=== PATIENT | male | born 1950 | race Caucasian/White ===

== ENCOUNTER → 2016-08-19 | Outpatient (CLI) | payer MEDICARE, OTHER ==
[2016-01-02 09:46] VITALS: BP 138/63
[~2016-08-19] MED LIST: ACET325T21 PO; AMIT10TA PO; AMIT25TA PO; AMLO10TA2 PO; AMOX1TAB11 PO; ASCO500T2 PO; BENA20TA2 PO; BUPIVACAINE MPF 0.75% 30 ML VIAL. ONE; CARB1TAB2 PO; CARB1TAB44 PO; CARB1TAB5 PO; CELE200C PO; CETI10TA22 PO; CLONIDINE PF 5,000 MCG/10 ML VIAL for PC Charging ONLY. EP ONE; DIAZ5TAB PO; DOXA4TAB3 PO; DOXY100T PO; DULO60CA6 PO; FERR325T58 PO; FINA5TAB4 PO; FURO-68 PO; FURO-69 PO; FURO40TA4 PO; GABA400C PO; GLYB5TAB3 PO; HYDR-2666 PO; HYDR-2672 PO; IBUP-1007 PO; LACT1CAP25 PO; LISI40TA PO; LOSA100T6 PO; LUBI24CA5 PO; MELA3TAB PO; METF10002 PO; METF500T4 PO; MORPHINE SULFATE IV ONE; MULT-460 PO; NYST30PO9 TP; OMEG1CAP6 PO; OMEP20CA9 PO; OXYC20TA34 PO; OXYC40TA21 PO; OXYC5CAP3 PO; PAIN PUMP; PANT40TA5 PO; POLY15DR28 OU; POLY17PO5 PO; POTA10TA10 PO; POTA20TA12 PO; SIMV40TA3 PO; TAMS0.4C2 PO; TRAZ100T12 PO; TRIA5PAS4 DT; VENL75TA PO; nystop
--- NOTE | 2016-08-19 21:19 | PAIN ---
DATE OF SERVICE: 08/19/2016 PROGRESS NOTE DIAGNOSES: 1. Post-lumbar laminectomy syndrome. 2. Multiple joint pain. 3. Chronic pain syndrome. 4. Left shoulder joint pain. HISTORY OF PRESENT ILLNESS: The patient is a 66-year-old male who returns for followup status post intrathecal pump therapy with morphine, clonidine and bupivacaine. The patient was in most recently on 06/23/2016. We had just increased his pump to 12.5 mg a day of the morphine driving medication. The patient reports he has done better, but still significant pain in his left foot from neuropathic pain and previous trauma and healing. The patient reports his pain as a 7 on a scale of 10. Otherwise, doing fairly well with his low back and shoulder pain. He is scheduled to have shoulder surgery next week on the left shoulder, reports that he is looking forward to getting it, feeling better as well with his back pain, doing much better with the intrathecal pump with no side effects. The patient reports he is still having difficulty with mobility as he uses wheelchair most times. It does motorized chair with good help with his mobility. In that perspective, he is still residing at a local rehab and custodial, which has been helpful for his overall daily activities and treatment as well. The patient reports no new motor or sensory deficits, no new bowel or bladder incontinence or other complaints. Again, no side effects with the medications and reports about 70% improvement with the medication for his low back pain overall. PHYSICAL EXAMINATION: VITAL SIGNS: Today, the patient's blood pressure is 100/63, pulse 85, respirations 18, temperature 98.4 degrees Fahrenheit. Height is 5 feet 7 inches, weight was not performed secondary patient's wish, not to get out of his wheelchair. GENERAL: The patient is awake, alert, oriented, appropriate, very pleasant demeanor. The patient accompanied his spouse. HEENT: Shows normocephalic and atraumatic. Extraocular movements are intact and symmetrical. Oral cavity shows mucous membranes moist and pink. Dentition is intact. NECK: Shows anterior throat supple without palpable lymphadenopathy noted. Swallow reflex is symmetrical. Neck shows full rotation and motion of cervical spine, both laterally as well as extension and flexion without difficulty. CHEST: Shows normal on inspection. Breath sounds are clear to auscultation bilaterally. HEART: Shows S1 and S2 clear. ABDOMEN: Obese, soft, nontender, nondistended. No palpable organomegaly is noted. No rebound or guarding demonstrated, easily palpable intrathecal pump is noted on the right lower quadrant with well-healed surgical scar on inspection over the area of the pump, which is mobile and nontender. BACK: Shows spine grossly in midline. Slight exaggeration of thoracic kyphosis and mild flattening of lumbar lordotic curvature. The patient shows well-healed surgical scar. On inspection, the lumbar distribution of the lumbar paraspinous muscles are symmetrical in appearance. With palpation, is moderately tender with palpation throughout the upper, middle, lower distribution of paraspinous muscles bilaterally in the lumbar distribution without radiation. No tenderness over the sacrum or sacroiliac regions; however. EXTREMITIES: The patient's lower extremities show deep tendon reflexes 1+ in the patellar tendons. The patient has a large soft boot on his left ankle and foot, but does have good dorsiflexion, extension, which is about 3 on a scale of 5, right side is a 4 on a scale 5 and intact bilaterally. Peripheral pulses are palpable at 1+ in the posterior tibial and dorsalis pedis pulses bilaterally as well. PLAN: Options were discussed with the patient. The patient's old chart was reviewed as his current medication regimen and updated. Current review of systems updated today as well. We will refill the patient's intrathecal pump under sterile prep and drape and reprogram as well with the current 12.5 mg of morphine driving medication per day maintained. The patient will return to clinic for refill of the medication prior to 01/21/2017 and prior to that if any other complaints or other needs arise. Once again, the patient was counseled as to activity levels as well as medication regimen and side effects to be aware of. PROCEDURE: Intrathecal pump refill and reprogramming. Under sterile prep and drape, the patient's right lower quadrant was prepped with sterile alcohol prep and sterile draping was applied in the usual fashion. Using a 22-gauge noncutting Design A kit needle, the pump was accessed without difficulty, 2 mL of medication was withdrawn and discarded from the pump and a solution of 40 mL of bupivacaine, clonidine and morphine as documented was then replaced in the pump with intermittent bolus injection without difficulty. The patient tolerated procedure well, had no complications. Needle was withdrawn. Sterile bandage was applied. The patient again will return to clinic prior to next refill date as documented. DIAGNOSES: Chronic pain syndrome with multiple joint pain and post-lumbar laminectomy syndrome. PROCEDURE: Intrathecal pump refill and reprogramming. MEDICATIONS REPLACED: A solution of bupivacaine, clonidine and morphine as documented. The patient's condition at discharge is stable. The patient tolerated the procedure well, had no complications. ANABEL LOMELI MD DR: ANNA/daron JOB#: [id number] / [id number]
== END | disposition home or self-care (01) ==
LOC: PNCL 11:04
PROVIDERS: ATTEND Anesthesiology
DX: M96.1 Postlaminectomy syndrome, not elsewhere classified (principal)
CPT/HCPCS: 95991; J0735; J2270; J3490

== ENCOUNTER 2016-09-29 07:38 | Inpatient (IN) | payer MEDICARE, OTHER ==
[2016-09-29] VITALS (10 sets, daily range): BP systolic 109–144; BP diastolic 40–84
[~2016-09-29] VITALS: Ht 170.2 cm; Wt 122.5 kg
[~2016-09-29 07:38] MED LIST changes: -BUPIVACAINE MPF 0.75% 30 ML VIAL. ONE; +CELECOXIB 200 MG CAPSULE PO PRN; -CLONIDINE PF 5,000 MCG/10 ML VIAL for PC Charging ONLY. EP ONE; +FENTANYL PF 100 MCG/2 ML VIAL. IV PRN; +HYDROCODONE/APAP 7.5/325MG TABLET. PO PRN; +IV RINGERS,LACTATED 1000ML 1,000 ML IV SCH; +LIDOCAINE 1% 1 ML SYRINGE. ID PRN; -MORPHINE SULFATE IV ONE; +ONDANSETRON PF 4 MG/2 ML VIAL. IV PRN; +PROCHLORPERAZINE 10 MG/2 ML VIAL. IV PRN; +TRANEXAMIC ACID 1,000 MG in IV NS 50ML -- 1ST BAG INJ ONE
[2016-09-29] MEDS ORDERED: TRANEXAMIC ACID 1,000 MG in IV NS 50ML -- 2ND BAG INJ ONE (08:00)
[2016-09-29] MEDS ORDERED: FAMOTIDINE 20 MG/2 ML VIAL ONE (09:04)
[2016-09-29] MEDS ORDERED: PROPOFOL 20 ML IV ONE ×2 (09:04→12:01)
[2016-09-29] MEDS ORDERED: LIDOCAINE 2% 100 MG/5 ML DISP.SYRIN. ONE (09:04)
[2016-09-29] MEDS ORDERED: ONDANSETRON PF 4 MG/2 ML VIAL. ONE (09:04)
[2016-09-29] MEDS ORDERED: DEXAMETHASONE SOD PHOS 20 MG/5 ML VIAL. ONE (09:04)
[2016-09-29] MEDS ORDERED: ROCURONIUM 50 MG/5 ML VIAL. ONE (09:05)
[2016-09-29] MEDS ORDERED: FENTANYL PF 100 MCG/2 ML VIAL. ONE ×2 (09:05→10:43)
[2016-09-29 09:09] LABS: BASO % 1 % (0-3); EOS % 4 % (0-3); HEMATOCRIT 30.1 % (39.0-53.0); HEMOGLOBIN 9.7 g/dL (13.0-17.5); LYMPH # 0.8 x10^3/uL (1.0-4.8); LYMPH % 9 % (24-48); MEAN CORPUSCULAR HEMOGLOBIN 28 pg (25-35); MEAN CORPUSCULAR HGB CONC 32 g/dL (31-37); MEAN CORPUSCULAR VOLUME 86 fL (79-100); MONO % 7 % (0-9); NEUT % 79 % (31-73); PLATELET COUNT 300 x10^3/uL (140-400); RED CELL DISTRIBUTION WIDTH 17.7 % (11.5-14.5); WHITE BLOOD COUNT 8.5 x10^3/uL (4.0-11.0)
[2016-09-29] MEDS ORDERED: SUCCINYLCHOLINE 200 MG/10 ML VIAL. ONE (09:49)
[2016-09-29] MEDS ORDERED: EPHEDRINE PF IN SALINE 50 MG/5 ML DISP.SYRIN. IV ONE (10:13)
[2016-09-29] MEDS: VANCOMYCIN 1GM IVPB FOR OMNI 250 ML IV PRN (10:15)
[2016-09-29] MEDS ORDERED: SEVOFLURANE > 120 MINUTES. IH ONE (10:17)
[2016-09-29] MEDS ORDERED: hydrALAZINE 20 MG/ML VIAL. ONE (11:26)
[2016-09-29] MEDS ORDERED: 0.9 % SODIUM CHLORIDE 50 ML VIAL. IJ ONE (11:26)
[2016-09-29] MEDS ORDERED: NEOSTIGMINE METHYLSULFATE 5 MG/5 ML SYRINGE. ONE (11:37)
[2016-09-29] MEDS ORDERED: GLYCOPYRROLATE 1 MG/5 ML VIAL. ONE (11:37)
[2016-09-29] MEDS ORDERED: BUPIVACAINE MPF 0.5% 30 ML VIAL. ONE (11:39)
--- NOTE | 2016-09-29 12:14 | PDOC ---
BRIEF OPERATIVE NOTE Date: Sep 29, 2016 Pre-Op Diagnosis rotator cuff arthropathy Post-Op Diagnosis same Procedure Performed left reverse total shoulder arthroplasty Surgeon Ousmane Anesthesia Type: General Blood Loss 125cc Specimens Obtained humeral head fragment to pathology Findings above Complications none AGUSTINA MAXWELL MD Sep 29, 2016 12:14
[2016-09-29] MEDS ORDERED: ACETAMINOPHEN INTRAVENOUS 100 ML IV ONE (12:15)
[2016-09-29] MEDS: FENTANYL PF 100 MCG/2 ML VIAL. IV PRN ×4 (12:31→13:50)
[2016-09-29] MEDS ORDERED: HYDROMORPHONE 2 MG/ML VIAL. ONE (12:53)
[2016-09-29] MEDS ORDERED: 0.9 % SODIUM CHLORIDE 10 ML DISP.SYRIN. IV PRN (13:00)
[2016-09-29] MEDS ORDERED: CALCIUM CARBONATE 500 MG TAB.CHEW PO PRN (13:00)
[2016-09-29] MEDS ORDERED: ACETAMINOPHEN 325 MG TABLET. PO PRN (13:00)
[2016-09-29] MEDS ORDERED: HYDROMORPHONE 2 MG/ML VIAL. IV PRN (13:00)
[2016-09-29] MEDS ORDERED: OXYCODONE/APAP 5/325 TABLET. PO PRN (13:00)
[2016-09-29] MEDS ORDERED: DEXTROSE 50% 25 GM / 50ML DISP.SYRIN. IV PRN (13:00)
[2016-09-29] MEDS ORDERED: ZOLPIDEM 5 MG TABLET. PO PRN (13:00)
[2016-09-29] MEDS: HYDROMORPHONE 2 MG/ML VIAL. IV PRN ×5 (13:01→15:29)
[2016-09-29] MEDS ORDERED: HYDROCODONE/APAP 10/325 TABLET. ONE (13:29)
[2016-09-29] MEDS: HYDROCODONE/APAP 10/325 TABLET. PO PRN ×3 (13:30→22:38)
--- NOTE | 2016-09-29 13:46 | RAD ---
2 view left shoulder radiographs 09/29/2016 Clinical history: Post left shoulder surgery. Portable AP and 2 transscapular digital radiographs of the left shoulder were obtained. Spinal rods and multiple laminar hooks are seen overlying the superior thoracic spine. Pedicle screws are seen within the lower thoracic vertebra. The patient is status post left shoulder joint replacement. The prosthetic components are intact. No fracture or dislocation is seen. Impression: Post left shoulder joint replacement. No acute osseous abnormality is seen.
--- NOTE | 2016-09-29 13:54 | HP ---
ADMIT DATE: 09/29/2016 PREOPERATIVE DIAGNOSIS: Rotator cuff arthropathy, left shoulder. POSTOPERATIVE DIAGNOSIS: Rotator cuff arthropathy, left shoulder. PROCEDURE: Left reverse total shoulder arthroplasty. SURGEON: Dr. Cuong Romeo ANESTHESIA: General. ESTIMATED BLOOD LOSS: 125 mL. COMPLICATIONS: None. OPERATIVE INDICATIONS: The patient is a 66-year-old male who is having severe left arm pain and long-term dysfunction of his left arm and inability to use it and use it to transfer to and from wheelchair or other daily activities. He has been unresponsive to injection, physical therapy, and other treatments, has rotator cuff arthropathy and got no relief from previous injections in our office as well as in the Pain Clinic. He has a right total shoulder arthroplasty that is painful and nonfunctional as well. He cannot lift his arm away from his body, and his main issues are that he has pain with activities as well as lying on either shoulder at night, but really would desire a functional shoulder in terms of his daily activities again in transfers, reaching, eating, toileting, and bathing, etc. He is now at a half-way and had surgery put off until recovery from a respiratory infection, which is now cleared. PAST MEDICAL HISTORY: Significant for hypertension, diabetes mellitus, Parkinson's, and degenerative disk disease. PAST SURGICAL HISTORY: Extensive with about 12 surgeries on his back, several cervical fusions, pain pump placement, left knee arthroscopy, septoplasty, tympanoplasty, right ankle ligament injury, and right total shoulder replacement in 2014 elsewhere. FAMILY HISTORY: Significant for mother of pancreatic cancer. Father with Parkinson's disease at 88 years old. He has 2 daughters and 2 sons, both healthy. SOCIAL HISTORY: He is a [id number] smoker. Denies alcohol or drug use. Lives in a prison facility and is otherwise disabled but does take care of himself as best as possible. MEDICATIONS: List is reviewed. ALLERGIES: Include STADOL AND TRAMADOL. PHYSICAL EXAMINATION: VITAL SIGNS: Per his admission sheet. HEENT: Atraumatic, normocephalic. HEART: Regular rate and rhythm. LUNGS: Clear to auscultation bilaterally. ABDOMEN: Benign and morbidly obese. EXTREMITIES: Gait is very limited. He is mainly wheelchair bound with transfers. Examination of lower extremities reveals some baseline lymphadenopathy of the extremities. Examination of the left shoulder reveals rotator cuff arthropathy and pseudoparalysis. No instability present. Normal parascapular stability is noted bilaterally. He has a well-healed incision from total shoulder arthroplasty on the right, but really cannot lift the arm away from his body. He has no pain with rotation with the arm at the side. Passive range of motion is good with no instability, but he has no real significant strength against gravity. He has good elbow and wrist motion bilaterally, overall intact motor function, distal pulses, sensation, reflexes scanned in both upper extremities throughout. IMPRESSION: 1. Left shoulder rotator cuff arthropathy. 2. History of poor functioning right total shoulder, elsewhere. 3. Morbid obesity. 4. Type 2 diabetes. 5. Chronic neck and back pain. TREATMENT PLAN: I had gone over with him the risks, benefits, and postoperative course of total shoulder arthroplasty. Hopefully, we can get him at least 1 shoulder that is really more functional. Due to the poor function of his right shoulder, I described how the construction and alignment of the reverse shoulder can get the deltoid involved and not be dependent on the rotator cuff, therefore, given better function and hopefully as well as pain relief that he does not have on the right. We did talk about the possibility of medical or other anesthetic complications, infection, nerve or blood vessel damage, and continued pain among others. All his questions were answered. He wants to proceed with surgical evaluation and treatment and gave informed consent today having had all his questions answered. CUONG ROMEO MD DR: GIANNI/daron JOB#: [id number] / [id number] CRISTINE Mayer MD
[2016-09-29] MEDS: IV DEXTROSE 5 %-0.45 % NACL 1,000 ML IV SCH (14:00)
[2016-09-29] MEDS: FERROUS SULFATE 325 MG TABLET PO SCH (17:51)
[2016-09-29] MEDS: HYDROCODONE/APAP 7.5/325MG TABLET. PO PRN ×2 (19:49→23:53)
[2016-09-29] MEDS: CELECOXIB 200 MG CAPSULE PO SCH (19:50)
[2016-09-29] MEDS ORDERED: VANCOMYCIN 1 GM in IV NORMAL SALINE 250ML 250 ML IV ONE (22:00)
[2016-09-30] VITALS (14 sets, daily range): BP systolic 114–168; BP diastolic 35–95
[2016-09-30] MEDS: HYDROCODONE/APAP 10/325 TABLET. PO PRN ×3 (03:37→16:15)
[2016-09-30] MEDS: HYDROCODONE/APAP 7.5/325MG TABLET. PO PRN (04:36)
[2016-09-30] MEDS ORDERED: MAGNESIUM HYDROXIDE 2,400 MG/30 ML ORAL.SUSP. PO PRN (06:00)
[2016-09-30] MEDS: OXYCODONE/APAP 7.5/325 TABLET. PO PRN ×3 (08:14→19:32)
[2016-09-30] MEDS: MULTIVITAMIN with MINERAL TABLET. PO SCH (08:14)
[2016-09-30] MEDS: SENNOSIDES/DOCUSATE 8.6/50MG TABLET. PO SCH (08:14)
[2016-09-30] MEDS: CELECOXIB 200 MG CAPSULE PO SCH ×2 (08:15→21:12)
[2016-09-30] MEDS: FERROUS SULFATE 325 MG TABLET PO SCH ×2 (08:15→16:36)
[2016-09-30] MEDS: IV DEXTROSE 5 %-0.45 % NACL 1,000 ML IV SCH ×3 (10:00→20:00)
[2016-09-30 10:20] LABS: HEMATOCRIT 27.7 % (39.0-53.0); HEMOGLOBIN 8.8 g/dL (13.0-17.5)
--- NOTE | 2016-09-30 13:05 | OP ---
DATE OF SURGERY: 09/29/2016 PREOPERATIVE DIAGNOSIS: Left shoulder rotator cuff arthropathy. POSTOPERATIVE DIAGNOSIS: Left shoulder rotator cuff arthropathy. PROCEDURE: Left reverse total shoulder arthroplasty. SURGEON: Cuong Maxwell M.D. ANESTHESIA: General endotracheal. ESTIMATED BLOOD LOSS: 125 mL. COMPLICATIONS: None. OPERATIVE INDICATIONS: The patient is a 66-year-old male with longstanding left shoulder pain and weakness. He also has a poorly-functioning right total shoulder arthroplasty done elsewhere several years ago where he cannot even lift his arm, and it is quite painful, too, not resolved, but he does not have really either arm functional and has a lot of difficulty in his activities of daily living even in terms of transferring or reaching, and feeding in a long-term environment. I had gone over with him the risks, benefits, and postoperative course of the procedure including the goals of pain relief and function, the possibility of instability, infection, nerve or blood vessel damage, and medical or other anesthetic complications among others. All his questions were answered. He wants to proceed with surgical evaluation and treatment having given informed consent. DESCRIPTION OF PROCEDURE: The patient was identified, procedure verified, patient placed in the supine position on the operating table. After adequate amounts of general endotracheal anesthesia were administered, he was placed on the T-max table with a head-rest placed in the semi-beach chair position. All bony prominences were well padded, and the left shoulder was prepped and draped in the standard sterile fashion and placed in a spider arm ulloa. After timeout was performed, the patient and procedure were identified and verified, an incision was made along a standard deltopectoral approach. Cephalic vein was taken laterally along with the deltoid. Clavipectoral fascia was taken down as was the superior aspect of the pectoralis tendon. Deltoid was elevated from its lateral insertion bluntly with a left finger, and the humeral head was exposed. Reaming was first carried out up to a size 16 down the center of the canal, and the cutting guide was placed to facilitate a cut in between 0 and 20 degrees of version more towards a 17 degrees based on his anatomic alignment. Humeral head cut was made. Osteophytes were removed. Reaming was carried out through a size 16 implant which was trial fit. The glenoid was then exposed, and the excess soft tissue of labrum was removed. ____ was buried out. A guidewire was placed along the lower aspect of the glenoid, inflated about 10 degrees declination, and a cannulated reamer was placed over that area until a smile of a cancellous bone noted inferiorly. Cartilage was all removed. Drilling was carried out to prepare the superior sclerotic bone for good in-growth, and after final preparation a standard 15-mm trabecular metal baseplate was impacted into place. Excellent screw fixation was carried out to the base of the coracoid and inferiorly into the scapular spine with 48-mm and 36-mm screws respectively. A 36-mm glenosphere was impacted with full engagement of the Justice taper. Trialing was carried out initially with a size 6 spacer which provided some laxity. A size 9 was ultimately decided to provide the best balance of motion and stability. Trial stem and spacer were then removed. Irrigation was carried out with normal saline solution. A ____ reverse total shoulder arthroplasty stem by Riley was placed, size 16. The size 9-mm spacer and a 0-mm regular (nonconstrained) polyethylene was placed. Both were impacted into place. The shoulder was reduced and had equivalent range of motion and excellent stability. Thorough irrigation was carried out with normal saline solution. Subscapularis and pectoralis were repaired with #5 Ethibond suture. Fascia was repaired with buried Vicryl suture, subcutaneous closure with buried Vicryl suture, subcuticular Monocryl at the skin level, Steri-Strips and Mastisol were placed followed by sterile dressings. The patient was extubated and transferred to postop holding in stable condition having tolerated the procedure well. Please note that Lexii Simmons, first gallegos, was present for assistance with retraction and the subcuticular closure. CUONG MAXWELL MD DR: GIANNI/daron JOB#: [id number] / [id number] CRISTINE Mayer MD
[2016-09-30] MEDS ORDERED: DIAZEPAM 5 MG TABLET PO PRN (13:30)
[2016-09-30] MEDS ORDERED: POLYETHYLENE GLYCOL 3350 17 GM PACKET. PO PRN (13:30)
[2016-09-30] MEDS: POTASSIUM CHLORIDE 10 MEQ TABLET.ER. PO SCH (14:30)
[2016-09-30] MEDS ORDERED: CARBIDOPA/LEVODOPA CR 25/100MG TABLET.SA PO SCH (14:30)
[2016-09-30] MEDS: PANTOPRAZOLE 40 MG TABLET. PO SCH (14:35)
[2016-09-30] MEDS: GABAPENTIN 400 MG CAPSULE. PO SCH ×2 (14:35→21:13)
[2016-09-30] MEDS: OXYCODONE ER 40 MG TAB.ER.12H. PO SCH ×2 (14:36→22:25)
[2016-09-30] MEDS ORDERED: BISACODYL 10 MG SUPP.RECT PR PRN (16:00)
[2016-09-30] MEDS: PROCHLORPERAZINE 5 MG TABLET. PO PRN (16:15)
[2016-09-30] MEDS: METFORMIN 500 MG TABLET. PO SCH (19:30)
[2016-09-30] MEDS: LUBIPROSTONE 8 MCG CAPSULE PO SCH (19:31)
--- NOTE | 2016-09-30 19:54 | PDOC ---
PROGRESS NOTES Subjective Subjective Problems overnight:doing well c/o left shoulder pain, breathing well Objective Vital Signs Vital Signs Date Time Temp Pulse Resp B/P Pulse Ox O2 Delivery O2 Flow Rate FiO2 09/30/16 19:32 20 95 Nasal Cannula 2.0 09/30/16 18:36 100 134/89 09/30/16 18:11 98.1 98.1 Physical Exam left shoulder stable, neuro intact, dressing dry Labs Laboratory Tests Test 09/29/16 08:28 09/29/16 08:50 09/29/16 12:26 09/29/16 14:40 Glucose (Fingerstick) 105mg/dL (70-99) 133mg/dL (70-99) White Blood Count 8.5x10^3/uL (4.0-11.0) Red Blood Count 3.50x10^6/uL (4.30-5.70) Hemoglobin 9.7g/dL (13.0-17.5) Hematocrit 30.1% (39.0-53.0) Mean Corpuscular Volume 86fL (79-100) Mean Corpuscular Hemoglobin 28pg (25-35) Mean Corpuscular Hemoglobin Concent 32g/dL (31-37) Red Cell Distribution Width 17.7% (11.5-14.5) Platelet Count 300x10^3/uL (140-400) Neutrophils (%) (Auto) 79% (31-73) Lymphocytes (%) (Auto) 9% (24-48) Monocytes (%) (Auto) 7% (0-9) Eosinophils (%) (Auto) 4% (0-3) Basophils (%) (Auto) 1% (0-3) Neutrophils # (Auto) 6.7x10^3uL (1.8-7.7) Lymphocytes # (Auto) 0.8x10^3/uL (1.0-4.8) Monocytes # (Auto) 0.6x10^3/uL (0.0-1.1) Eosinophils # (Auto) 0.3x10^3/uL (0.0-0.7) Basophils # (Auto) 0.0x10^3/uL (0.0-0.2) Albumin 3.2g/dL (3.4-5.0) Nasal Screen MRSA (PCR) Negative (Negative) Test 09/30/16 09:45 09/30/16 13:53 09/30/16 18:59 Hemoglobin 8.8g/dL (13.0-17.5) Hematocrit 27.7% (39.0-53.0) Mean Corpuscular Hemoglobin Concent 32g/dL (31-37) Glucose (Fingerstick) 125mg/dL (70-99) 116mg/dL (70-99) Laboratory Tests Test 09/30/16 09:45 09/30/16 13:53 09/30/16 18:59 Hemoglobin 8.8g/dL (13.0-17.5) Hematocrit 27.7% (39.0-53.0) Mean Corpuscular Hemoglobin Concent 32g/dL (31-37) Glucose (Fingerstick) 125mg/dL (70-99) 116mg/dL (70-99) Imaging postop xrays left shoulder show well positioned reverse total arthroplasty Assessment Assessment POD# [1], S/P [left reverse total shoulder] Problems: Plan Plan of Care transfer to joint center renew meds mobilize with pt return to [facility] when medically stable AGUSTINA MAXWELL MD Sep 30, 2016 19:54
[2016-09-30] MEDS ORDERED: traZODone 100 MG TABLET. PO SCH (21:00)
[2016-09-30] MEDS: CARBIDOPA/LEVODOPA CR 25/100MG TABLET.SA PO SCH (21:13)
[2016-10-01 00:30] VITALS: BP 121/64
[2016-10-01] MEDS: OXYCODONE/APAP 7.5/325 TABLET. PO PRN ×3 (00:38→12:25)
[2016-10-01] MEDS: HYDROCODONE/APAP 10/325 TABLET. PO PRN ×2 (02:54→10:29)
[2016-10-01 03:00] VITALS: BP 114/76
[2016-10-01] MEDS: PROCHLORPERAZINE 5 MG TABLET. PO PRN ×2 (03:00→11:09)
[2016-10-01 05:25] LABS: HEMATOCRIT 27.8 % (39.0-53.0); HEMOGLOBIN 9.1 g/dL (13.0-17.5)
[2016-10-01] MEDS: IV DEXTROSE 5 %-0.45 % NACL 1,000 ML IV SCH (06:00)
[2016-10-01] MEDS: OXYCODONE ER 40 MG TAB.ER.12H. PO SCH ×2 (06:24→13:34)
[2016-10-01 06:28] VITALS: BP 124/69
[2016-10-01] MEDS: PANTOPRAZOLE 40 MG TABLET. PO SCH (07:00)
[2016-10-01 07:57] VITALS: BP 112/63
[2016-10-01] MEDS: GABAPENTIN 400 MG CAPSULE. PO SCH ×2 (07:58→13:33)
[2016-10-01] MEDS: LUBIPROSTONE 8 MCG CAPSULE PO SCH (07:58)
[2016-10-01] MEDS: FERROUS SULFATE 325 MG TABLET PO SCH (07:58)
[2016-10-01] MEDS: SENNOSIDES/DOCUSATE 8.6/50MG TABLET. PO SCH (07:58)
[2016-10-01] MEDS: POTASSIUM CHLORIDE 10 MEQ TABLET.ER. PO SCH (07:59)
[2016-10-01] MEDS: MULTIVITAMIN with MINERAL TABLET. PO SCH (07:59)
[2016-10-01] MEDS: METFORMIN 500 MG TABLET. PO SCH (08:00)
[2016-10-01] MEDS: CELECOXIB 200 MG CAPSULE PO SCH (08:00)
[2016-10-01] MEDS: CARBIDOPA/LEVODOPA CR 25/100MG TABLET.SA PO SCH ×2 (08:03→13:34)
[2016-10-01] MEDS ORDERED: DULOXETINE HCL 30 MG CAPSULE.DR. PO SCH (09:00)
[2016-10-01] MEDS ORDERED: CETIRIZINE HCL 10 MG TABLET PO SCH (09:00)
[2016-10-01] MEDS ORDERED: FUROSEMIDE 40 MG TABLET PO SCH (09:00)
[2016-10-01] MEDS ORDERED: TAMSULOSIN 0.4 MG CAP.ER.24H. PO SCH (09:00)
[2016-10-01] MEDS ORDERED: FINASTERIDE 5 MG TABLET PO SCH (09:00)
[2016-10-01] MEDS ORDERED: LISINOPRIL 40 MG TABLET. PO SCH (09:00)
[2016-10-01] MEDS ORDERED: AMLODIPINE BESYLATE 10 MG TABLET PO SCH (09:00)
[2016-10-01 11:03] VITALS: BP 95/53
[2016-10-01 12:53] VITALS: BP 146/84
--- NOTE | 2016-10-01 13:09 | PDOC ---
ORTHO PROGRESS NOTES Subjective Butch complaining of pain but pain medication is helping. Anticipates discharge back to intermediate today. Post-op Day: 2 (Left reverse total shoulder) Vitals Vital Signs Date Time Temp Pulse Resp B/P Pulse Ox O2 Delivery O2 Flow Rate FiO2 10/01/16 12:53 112 146/84 93 Room Air 10/01/16 11:03 98.3 98.3 10/01/16 06:28 20 2.0 Labs Laboratory Tests Test 09/29/16 14:40 09/30/16 09:45 09/30/16 13:53 09/30/16 18:59 Nasal Screen MRSA (PCR) Negative (Negative) Hemoglobin 8.8g/dL (13.0-17.5) Hematocrit 27.7% (39.0-53.0) Mean Corpuscular Hemoglobin Concent 32g/dL (31-37) Glucose (Fingerstick) 125mg/dL (70-99) 116mg/dL (70-99) Test 09/30/16 22:44 10/01/16 04:40 10/01/16 05:52 Glucose (Fingerstick) 133mg/dL (70-99) 133mg/dL (70-99) Hemoglobin 9.1g/dL (13.0-17.5) Hematocrit 27.8% (39.0-53.0) Mean Corpuscular Hemoglobin Concent 33g/dL (31-37) Laboratory Tests Test 09/30/16 13:53 09/30/16 18:59 09/30/16 22:44 10/01/16 04:40 Glucose (Fingerstick) 125mg/dL (70-99) 116mg/dL (70-99) 133mg/dL (70-99) Hemoglobin 9.1g/dL (13.0-17.5) Hematocrit 27.8% (39.0-53.0) Mean Corpuscular Hemoglobin Concent 33g/dL (31-37) Test 10/01/16 05:52 Glucose (Fingerstick) 133mg/dL (70-99) Notes Patient is awake and alert sitting up in chair. Breathing unlabored, no acute distress. Neurovascular intact left upper extremity. Incision covered with dressing, intact no signs or symptoms of infection Problems: (1) Left rotator cuff tear arthropathy Assessment and Plan Discharge activity intermediate today Follow-up with Dr. Romeo in 2 weeks TOMMIE TOBIN APRN Oct 01, 2016 13:09
[2016-10-01] MEDS ORDERED: OXYCODONE ER 10 MG TAB.ER.12H. PO SCH (17:00)
--- NOTE | 2016-10-01 17:38 | PATHOLOGY ---
PATHOLOGY REPORT * * * * * * * * FINAL DIAGNOSIS: Segments of bone and soft tissue, left reverse total shoulder arthroplasty: - Advanced degenerative arthritis. (FLACAM:; d/t: 10/01/16) REPORT ELECTRONICALLY SIGNED BY: Jeffrey Bustamante M.D. DATE/TIME: 10/01/2016 17:37 * * * * * * * * GROSS PATHOLOGY: The specimen is received in formalin labeled "Jessica Steven left shoulder bone and tissue". Received is a dome-shaped segment of light macedo bone measuring 5.1 x 5.1 x 2.1 cm in greatest dimensions admixed with white-macedo to pink-macedo fibrous soft tissue measuring 2.8 x 2.2 x 0.5 cm in aggregate dimensions. The articulating surface displays focal eburnation. Sectioning reveals light macedo cut surfaces. The specimen is submitted representatively in cassette A1, following decalcification. (CAA; 09/30/2016) INITIAL CPT CODE(S): A; 61416, 78960 Professional services [place] [place] [address] Technical services performed by [facility] at [address] [place] [address]. SPECIMEN(S) RECEIVED: A.Left shoulder bone and tissue CLINICAL HISTORY: Rotator cuff arthropathy PATIENT: JESSICA STEVEN /AGE: 803/18/1950 (Age: 66) PATIENT #: [id number] ALT CASE #: SPECIMEN COLLECTION DATE: 09/29/2016 SPECIMEN RECEIVED DATE: 09/29/2016 [facility] - [address] [place] [address] - PHONE: [phone] * * * END OF REPORT * * *
== END 2016-10-01 15:08 | DRG 483 ==
LOC: OPSVCIP 07:38 → 1 WEST ICU 11:40 → 4 SOUTHEST 09-30 12:51
PROVIDERS: ADMIT Orthopaedic Surgery; ATTEND Orthopaedic Surgery
PROC: 0RRK00Z Replacement of Left Shoulder Joint with Reverse Ball and Socket Synthetic Substitute, Open Approach (ICD-10-PCS; principal; 2016-09-30)
DX: M12.9 Arthropathy, unspecified (principal); E11.9 Type 2 diabetes mellitus without complications; E66.01 Morbid (severe) obesity due to excess calories; F17.200 Nicotine dependence, unspecified, uncomplicated; Z96.611 Presence of right artificial shoulder joint; G20 Parkinson's disease; G89.29 Other chronic pain; I10 Essential (primary) hypertension; Z80.0 Family history of malignant neoplasm of digestive organs; Z82.0 Family history of epilepsy and other diseases of the nervous system; Z79.899 Other long term (current) drug therapy
CPT/HCPCS: 36415; 73030; 82040; 82947; 85014; 85018; 85027; 86850; 86900; 86901; 87641; 88304; 88311; J0131; J0330; J0360; J1100; J1170; J2405; J2704; J2710; J3010; J3370; J3490; J7030; J7050; J7120; Q0164; S0028; 97110; 97535; C1769

== ENCOUNTER 2016-10-24 08:00 | Emergency (ER) | payer MEDICARE, OTHER ==
[~2016-10-24] VITALS: Ht 172.7 cm; Wt 134.3 kg
[~2016-10-24 08:00] MED LIST changes: -CELECOXIB 200 MG CAPSULE PO PRN; -FENTANYL PF 100 MCG/2 ML VIAL. IV PRN; -HYDROCODONE/APAP 7.5/325MG TABLET. PO PRN; -IV RINGERS,LACTATED 1000ML 1,000 ML IV SCH; -LIDOCAINE 1% 1 ML SYRINGE. ID PRN; -ONDANSETRON PF 4 MG/2 ML VIAL. IV PRN; -PROCHLORPERAZINE 10 MG/2 ML VIAL. IV PRN; -TRANEXAMIC ACID 1,000 MG in IV NS 50ML -- 1ST BAG INJ ONE
[2016-10-24] MEDS ORDERED: MORPHINE SULFATE 10 MG/ML VIAL. IM ONE (09:15)
--- NOTE | 2016-10-24 09:17 | PHYS DOC ---
Past Medical History Past Medical History: Anxiety, COPD, Depression, Diabetes-Type II, Hypertension , Other Additional Past Medical Histor: DEG SPINAL DIS, BACK PAIN, NEUROPATHY, CELLULITIS, SLEEP APNEA, PARKINSONS Past Surgical History: Knee Replacement, Tonsillectomy, Other Additional Past Surgical Histo: SHOULDER SURGERY BACK SURGERY, HEMORRHOID SURGER, PAIN PUMP Alcohol Use: None Drug Use: None Social History Narrative: lives at residential facility Adult General Chief Complaint Chief Complaint: POST-OP PROBLEM HPI HPI Patient is a 66 year old male with history of multiple chronic pain issues who presents with increase in his chronic pain starting today. He has pain in the left shoulder, left foot, and back. He had surgery on the left shoulder on performed by Dr. Romeo. He sees Dr. Anabel Lomeli for pain management. He has a pain pump that contains morphine, clonidine, and bupivacaine. The pump was last filled on 08/19/16. The pump requires refill every 5 months. He takes OxyContin 40mg bid and Albion 10mg every 6 hours for pain as well. He is a resident at [facility] where they perform PT/OT, and wound care for his chronic diabetic foot ulcers. He denies any new therapy yesterday. He has not had any new injuries. He denies new weakness or numbness, worsening of the foot ulcers, or fevers. His PCP is Dr. Leal. Review of Systems Review of Systems Constitutional: Denies fever or chills. [] GI: Denies abdominal pain, nausea, vomiting, bloody stools or diarrhea. [] : Denies dysuria, hematuria or urinary frequency. [] Musculoskeletal: Reports left shoulder, left foot, and back pain. Integument: Denies rash or skin lesions. Denies change in chronic left foot ulcer or changes in surgical incision site. Neurologic: Denies headache, focal weakness or sensory changes. [] All systems reviewed and negative unless otherwise stated in the HPI. Current Medications Current Medications Current Medications Medications (Trade) Dose Ordered Sig/Sisi Start Time Stop Time Status Last Admin Dose Admin Morphine Sulfate 10 mg 1X ONCE 10/24/16 09:15 10/24/16 09:16 DC 10/24/16 09:00 10 MG Allergies Allergies Allergies Coded Allergies Type Severity Reaction Last Updated Verified butorphanol tartrate Allergy Intermediate 09/29/16 Yes tramadol Allergy Intermediate 09/29/16 Yes I S O L A T I O N *CONTACT* Allergy Unknown 09/29/16 Yes Physical Exam Physical Exam Constitutional: Well developed, well nourished, no acute distress, non-toxic appearance. [] HENT: Normocephalic, atraumatic, oropharynx moist. [] Eyes: PERRLA, EOMI, conjunctiva normal, no discharge. [] Neck: Normal range of motion, no tenderness, supple, no stridor. [] Cardiovascular: Heart rate regular rhythm, no murmur. [] Lungs & Thorax: Bilateral breath sounds clear to auscultation without wheezes, rales, or rhonchi. [] Abdomen: Bowel sounds normal, soft, no tenderness, no masses, no pulsatile masses. [] Skin: Warm, dry. Well-healing surgical incision of the left anterior shoulder with Steri-Strips in place. There is no surrounding erythema, induration, or purulent drainage from the wound. Chronic cellulitic changes in the lower extremities, stable per patient and . There is an old, healing diabetic foot ulcer on the plantar surface of the left foot laterally. Back: Diffuse midline tenderness, no CVA tenderness. [] Extremities: Left shoulder tenderness, up to 90 of abduction of the left shoulder, no edema. 2+ radial and ulnar pulses distally. Less than 2 second capillary fingers. Light touch sensation intact distally. Bilateral dairy nutrition consultant strength equal. Neurologic: Alert and oriented X 3, normal motor function, normal sensory function, no focal deficits noted. [] Psychologic: Affect normal, judgement normal, mood normal. [] Current Patient Data Vital Signs Vital Signs Date Time Temp Pulse Resp B/P Pulse Ox O2 Delivery O2 Flow Rate FiO2 10/24/16 09:00 21 10/24/16 08:20 98.9 118 183/84 94 Room Air 98.9 EKG EKG [] Radiology/Procedures Radiology/Procedures [] Course & Med Decision Making Course & Med Decision Making Pertinent Labs and Imaging studies reviewed. (See chart for details) Patient is a 66-year-old male with history of chronic pain on pain management who presents with increase in his pain starting today. He is given IM morphine 10 mg in the emergency department. He has been taking Albion 10 mg for breakthrough pain on a regular scheduled basis, not just for prn pain. We were unable to reach the patient's pain management doctor on the weekend to discuss treatment plan. Patient course was discussed with Dr. Bneder, emergency department attending physician. The patient is discharged back to the nursing center with prescription for OxyContin 50 mg twice a day. Hopefully the increase in his long-term pain medication while decrease his need for the hydrocodone on a regular basis, so that he may receive it on an as-needed basis. The patient is instructed to follow-up with his pain management doctor on Wednesday. Return precautions were discussed. Patient and verbalized understanding and agree with plan. Dragon Disclaimer Dragon Disclaimer This electronic medical record was generated, in whole or in part, using a voice recognition dictation system. Departure Departure Impression: Primary Impression: Chronic pain Disposition: 01 HOME, SELF-CARE Condition: IMPROVED Referrals: CRISTINE GARAY MD (PCP) ANABEL LOMELI MD Patient Instructions: Chronic Pain Management-Brief Additional Instructions: You were seen for an increase in your chronic pain. You have been prescribed a higher dose of your OxyContin medication. Please begin taking this instead of the OxyContin 40 mg, to better control your pain. Please follow-up with your pain management doctor as soon as possible. Call on Wednesday to schedule an appointment. Return to the emergency department if you have any new or concerning symptoms. Scripts Oxycodone Hcl (Oxycontin)10 Mg Tab.er.12h10 Mg PO BID PAIN #10 TAB Prov:SONIA WU 10/24/16 Problem Qualifiers Primary Impression: Chronic pain Chronic pain type: other chronic pain Qualified Code: G89.29 - Other chronic pain SONIA WU Oct 24, 2016 09:17
[2016-10-24] MEDS ORDERED: OXYC10TA32 PO (09:27)
[2016-10-24 09:54] VITALS: BP 182/89
== END 2016-10-24 09:55 | disposition home or self-care (01) ==
LOC: ER 08:00
DX: G89.29 Other chronic pain (principal); M25.512 Pain in left shoulder; M79.672 Pain in left foot; M54.9 Dorsalgia, unspecified; E11.621 Type 2 diabetes mellitus with foot ulcer; E11.40 Type 2 diabetes mellitus with diabetic neuropathy, unspecified; G62.9 Polyneuropathy, unspecified; I10 Essential (primary) hypertension; G47.30 Sleep apnea, unspecified; G20 Parkinson's disease; J44.9 Chronic obstructive pulmonary disease, unspecified; Z87.19 Personal history of other diseases of the digestive system; Z96.659 Presence of unspecified artificial knee joint; Z91.041 Radiographic dye allergy status; Z88.6 Allergy status to analgesic agent; Z88.8 Allergy status to other drugs, medicaments and biological substances; Z79.891 Long term (current) use of opiate analgesic; Z79.899 Other long term (current) drug therapy
CPT/HCPCS: 96372; 99284; J2270

== ENCOUNTER 2017-01-04 03:09 | Emergency (ER) | payer MEDICARE, OTHER ==
[~2017-01-04] VITALS: Ht 177.8 cm; Wt 134.3 kg
[~2017-01-04 03:09] MED LIST changes: -HYDR-2666 PO; -HYDR-2672 PO; +HYDR-2758 PO; +HYDR-2766 PO; -LUBI24CA5 PO; +LUBI24CA7 PO; -MELA3TAB PO; +MELA3TAB2 PO; +METF-620 PO; -METF10002 PO; +NYST15PO9 TP; -NYST30PO9 TP; +OXYC10TA45 PO; +OXYC5CAP PO; -OXYC5CAP3 PO; +POLY17PO29 PO; -POLY17PO5 PO; -POTA10TA10 PO; +POTA10TA12 PO; -TRIA5PAS4 DT; +TRIA5PAS5 DT
--- NOTE | 2017-01-04 03:46 | PHYS DOC ---
Past Medical History Past Medical History: Anxiety, COPD, Depression, Diabetes-Type II, Hypertension , Other Additional Past Medical Histor: DEG SPINAL DIS, BACK PAIN, NEUROPATHY, CELLULITIS, SLEEP APNEA, PARKINSONS Past Surgical History: Knee Replacement, Tonsillectomy, Other Additional Past Surgical Histo: SHOULDER SURGERY BACK SURGERY, HEMORRHOID SURGER, PAIN PUMP Alcohol Use: None Drug Use: None Adult General Chief Complaint Chief Complaint: BACK PAIN - NO INJURY HPI HPI Patient is a 66 year old [f__sex] who presents with [] Review of Systems Review of Systems Constitutional: Denies fever or chills [] Eyes: Denies change in visual acuity, redness, or eye pain [] HENT: Denies nasal congestion or sore throat [] Respiratory: Denies cough or shortness of breath [] Cardiovascular: No additional information not addressed in HPI [] GI: Denies abdominal pain, nausea, vomiting, bloody stools or diarrhea [] : Denies dysuria or hematuria [] Musculoskeletal: Denies back pain or joint pain [] Integument: Denies rash or skin lesions [] Neurologic: Denies headache, focal weakness or sensory changes [] Endocrine: Denies polyuria or polydipsia [] Allergies Allergies Allergies Coded Allergies Type Severity Reaction Last Updated Verified butorphanol tartrate Allergy Intermediate 09/29/16 Yes tramadol Allergy Intermediate 09/29/16 Yes I S O L A T I O N *CONTACT* Allergy Unknown 09/29/16 Yes Physical Exam Physical Exam Constitutional: Well developed, well nourished, no acute distress, non-toxic appearance. [] HENT: Normocephalic, atraumatic, bilateral external ears normal, oropharynx moist, no oral exudates, nose normal. [] Eyes: PERRLA, EOMI, conjunctiva normal, no discharge. [] Neck: Normal range of motion, no tenderness, supple, no stridor. [] Cardiovascular:Heart rate regular rhythm, no murmur [] Lungs & Thorax: Bilateral breath sounds clear to auscultation [] Abdomen: Bowel sounds normal, soft, no tenderness, no masses, no pulsatile masses. [] Skin: Warm, dry, no erythema, no rash. [] Back: No tenderness, no CVA tenderness. [] Extremities: No tenderness, no cyanosis, no clubbing, ROM intact, no edema. [] Neurologic: Alert and oriented X 3, normal motor function, normal sensory function, no focal deficits noted. [] Psychologic: Affect normal, judgement normal, mood normal. [] EKG EKG [] Radiology/Procedures Radiology/Procedures [] Course & Med Decision Making Course & Med Decision Making Pertinent Labs and Imaging studies reviewed. (See chart for details) [] Dragon Disclaimer Dragon Disclaimer This electronic medical record was generated, in whole or in part, using a voice recognition dictation system. Departure Departure Impression: Primary Impression: Back pain Additional Impression: Chronic pain Disposition: 01 HOME, SELF-CARE Condition: IMPROVED Referrals: NO PCP (PCP) Patient Instructions: Chronic Back Pain Additional Instructions: Please talk to so they can schedule you as an outpatient with a chronic pain specialist Problem Qualifiers BRIAN FOSTER MD Jan 04, 2017 03:46
[2017-01-04] MEDS ORDERED: CYCLOBENZAPRINE 10 MG TABLET. PO ONE (04:00)
[2017-01-04] MEDS ORDERED: KETOROLAC 15 MG/ML VIAL. IM ONE (04:00)
[2017-01-04] MEDS ORDERED: HYDROmorphone 2 MG/ML VIAL IM ONE (04:00)
[2017-01-04 04:19] VITALS: BP 155/70
== END 2017-01-04 04:35 | disposition home or self-care (01) ==
LOC: ER 03:09
DX: G89.29 Other chronic pain (principal); M54.5 Low back pain; J44.9 Chronic obstructive pulmonary disease, unspecified; E11.40 Type 2 diabetes mellitus with diabetic neuropathy, unspecified; I10 Essential (primary) hypertension; G47.30 Sleep apnea, unspecified; G20 Parkinson's disease; Z88.8 Allergy status to other drugs, medicaments and biological substances; Z88.6 Allergy status to analgesic agent; Z91.041 Radiographic dye allergy status
CPT/HCPCS: 96372; 99284; J1170; J1885

== ENCOUNTER → 2017-01-21 | Outpatient (CLI) | payer MEDICARE ==
[2017-01-04 04:19] VITALS: BP 155/70
[~2017-01-21] MED LIST changes: +BUPIVACAINE MPF 0.75% 30 ML VIAL. ONE; +MORPHINE SULFATE IV ONE; +cloNIDine PF 5,000 MCG/10 ML VIAL EP ONE
== END | disposition home or self-care (01) ==
LOC: PNCL 10:45
PROVIDERS: ATTEND Anesthesiology
DX: M25.512 Pain in left shoulder (principal); Z86.69 Personal history of other diseases of the nervous system and sense organs; G20 Parkinson's disease; E78.00 Pure hypercholesterolemia, unspecified; I48.91 Unspecified atrial fibrillation; E66.9 Obesity, unspecified; Z68.44 Body mass index [BMI] 60.0-69.9, adult; K21.9 Gastro-esophageal reflux disease without esophagitis; Z87.440 Personal history of urinary (tract) infections; Z87.39 Personal history of other diseases of the musculoskeletal system and connective tissue; M19.90 Unspecified osteoarthritis, unspecified site; Z96.653 Presence of artificial knee joint, bilateral; Z96.612 Presence of left artificial shoulder joint; Z96.611 Presence of right artificial shoulder joint; Z86.39 Personal history of other endocrine, nutritional and metabolic disease; E11.9 Type 2 diabetes mellitus without complications; F41.9 Anxiety disorder, unspecified; F32.9 Major depressive disorder, single episode, unspecified; Z72.89 Other problems related to lifestyle; Z72.0 Tobacco use; F17.200 Nicotine dependence, unspecified, uncomplicated; Z88.6 Allergy status to analgesic agent; Z88.8 Allergy status to other drugs, medicaments and biological substances
CPT/HCPCS: 95991; J0735; J2270; J3490

== ENCOUNTER → 2017-04-01 | Outpatient (CLI) | payer MEDICARE ==
[~2017-04-01] MED LIST changes: -BUPIVACAINE MPF 0.75% 30 ML VIAL. ONE; -MORPHINE SULFATE IV ONE; -cloNIDine PF 5,000 MCG/10 ML VIAL EP ONE
== END | disposition home or self-care (01) ==
LOC: PMGWOUND 13:47
PROVIDERS: ATTEND Emergency Medicine Undersea and Hyperbaric Medicine
DX: E11.621 Type 2 diabetes mellitus with foot ulcer (principal); L97.422 Non-pressure chronic ulcer of left heel and midfoot with fat layer exposed; F41.9 Anxiety disorder, unspecified; K21.9 Gastro-esophageal reflux disease without esophagitis; F32.9 Major depressive disorder, single episode, unspecified; E66.9 Obesity, unspecified; G20 Parkinson's disease; I48.91 Unspecified atrial fibrillation; E78.00 Pure hypercholesterolemia, unspecified; M19.90 Unspecified osteoarthritis, unspecified site; Z68.44 Body mass index [BMI] 60.0-69.9, adult; Z87.891 Personal history of nicotine dependence; Z72.89 Other problems related to lifestyle
CPT/HCPCS: 11042

== ENCOUNTER → 2017-04-13 | Outpatient (CLI) | payer MEDICARE | END | disposition home or self-care (01) | LOC: PMGWOUND 14:35 | PROVIDERS: ATTEND Emergency Medicine Undersea and Hyperbaric Medicine | DX: E11.621 Type 2 diabetes mellitus with foot ulcer (principal); L97.422 Non-pressure chronic ulcer of left heel and midfoot with fat layer exposed; F41.9 Anxiety disorder, unspecified; K21.9 Gastro-esophageal reflux disease without esophagitis; F32.9 Major depressive disorder, single episode, unspecified; E66.9 Obesity, unspecified; I48.91 Unspecified atrial fibrillation; E78.00 Pure hypercholesterolemia, unspecified; M19.90 Unspecified osteoarthritis, unspecified site; G20 Parkinson's disease; Z68.44 Body mass index [BMI] 60.0-69.9, adult; Z72.89 Other problems related to lifestyle; Z87.891 Personal history of nicotine dependence | CPT/HCPCS: 11042 ==

== ENCOUNTER → 2017-04-16 | Outpatient (CLI) | payer MEDICARE | END | disposition home or self-care (01) | LOC: PMGWOUND 12:01 | PROVIDERS: ATTEND Preventive Medicine Undersea and Hyperbaric Medicine | DX: E11.621 Type 2 diabetes mellitus with foot ulcer (principal); L97.422 Non-pressure chronic ulcer of left heel and midfoot with fat layer exposed; F41.9 Anxiety disorder, unspecified; K21.9 Gastro-esophageal reflux disease without esophagitis; F32.9 Major depressive disorder, single episode, unspecified; E66.9 Obesity, unspecified; G20 Parkinson's disease; E78.00 Pure hypercholesterolemia, unspecified; I48.91 Unspecified atrial fibrillation; M19.90 Unspecified osteoarthritis, unspecified site; Z68.44 Body mass index [BMI] 60.0-69.9, adult; Z72.89 Other problems related to lifestyle; Z87.891 Personal history of nicotine dependence | CPT/HCPCS: 29445 ==

== ENCOUNTER → 2017-04-19 | Outpatient (CLI) | payer MEDICARE | END | disposition home or self-care (01) | LOC: PMGWOUND 12:15 | PROVIDERS: ATTEND Emergency Medicine Undersea and Hyperbaric Medicine | DX: E11.621 Type 2 diabetes mellitus with foot ulcer (principal); L97.422 Non-pressure chronic ulcer of left heel and midfoot with fat layer exposed; F41.9 Anxiety disorder, unspecified; F32.9 Major depressive disorder, single episode, unspecified; K21.9 Gastro-esophageal reflux disease without esophagitis; E66.9 Obesity, unspecified; Z87.891 Personal history of nicotine dependence | CPT/HCPCS: 11042 ==

== ENCOUNTER → 2017-04-22 | Outpatient (CLI) | payer MEDICARE | END | disposition home or self-care (01) | LOC: PMGWOUND 10:16 | PROVIDERS: ATTEND Emergency Medicine Undersea and Hyperbaric Medicine | DX: E11.621 Type 2 diabetes mellitus with foot ulcer (principal); L97.422 Non-pressure chronic ulcer of left heel and midfoot with fat layer exposed; F41.9 Anxiety disorder, unspecified; K21.9 Gastro-esophageal reflux disease without esophagitis; F32.9 Major depressive disorder, single episode, unspecified; E66.9 Obesity, unspecified; G20 Parkinson's disease; E78.00 Pure hypercholesterolemia, unspecified; I48.91 Unspecified atrial fibrillation; M19.90 Unspecified osteoarthritis, unspecified site; Z72.89 Other problems related to lifestyle; Z68.44 Body mass index [BMI] 60.0-69.9, adult; Z87.891 Personal history of nicotine dependence | CPT/HCPCS: 99214 ==

== ENCOUNTER → 2017-04-26 | Outpatient (CLI) | payer MEDICARE, OTHER ==
[~2017-04-26] MED LIST changes: +FEXO180T16 PO; +NYST15PO2 TP; +ZOLP10TA4 PO
== END | disposition home or self-care (01) ==
LOC: PMGWOUND 13:30
PROVIDERS: ATTEND Emergency Medicine Undersea and Hyperbaric Medicine
DX: E11.621 Type 2 diabetes mellitus with foot ulcer (principal); L97.422 Non-pressure chronic ulcer of left heel and midfoot with fat layer exposed; F41.9 Anxiety disorder, unspecified; K21.9 Gastro-esophageal reflux disease without esophagitis; F32.9 Major depressive disorder, single episode, unspecified; E66.9 Obesity, unspecified; E78.00 Pure hypercholesterolemia, unspecified; G20 Parkinson's disease; I48.91 Unspecified atrial fibrillation; M19.90 Unspecified osteoarthritis, unspecified site; Z68.44 Body mass index [BMI] 60.0-69.9, adult; Z72.89 Other problems related to lifestyle; Z87.891 Personal history of nicotine dependence
CPT/HCPCS: 99214

== ENCOUNTER → 2017-04-29 | Outpatient (CLI) | payer MEDICARE, OTHER | END | disposition home or self-care (01) | LOC: PMGWOUND 13:03 | PROVIDERS: ATTEND Emergency Medicine Undersea and Hyperbaric Medicine | DX: E11.621 Type 2 diabetes mellitus with foot ulcer (principal); L97.422 Non-pressure chronic ulcer of left heel and midfoot with fat layer exposed; F32.9 Major depressive disorder, single episode, unspecified; F41.9 Anxiety disorder, unspecified; K21.9 Gastro-esophageal reflux disease without esophagitis; E66.09 Other obesity due to excess calories; Z68.44 Body mass index [BMI] 60.0-69.9, adult; E78.00 Pure hypercholesterolemia, unspecified; I48.91 Unspecified atrial fibrillation; M19.90 Unspecified osteoarthritis, unspecified site; Z87.891 Personal history of nicotine dependence | CPT/HCPCS: 99214 ==

== ENCOUNTER → 2017-05-03 | Outpatient (CLI) | payer MEDICARE ==
[~2017-05-03] MED LIST changes: -FEXO180T16 PO; -NYST15PO2 TP; -ZOLP10TA4 PO
== END | disposition home or self-care (01) ==
LOC: PMGWOUND 12:54
PROVIDERS: ATTEND Emergency Medicine Undersea and Hyperbaric Medicine
DX: E11.621 Type 2 diabetes mellitus with foot ulcer (principal); L97.422 Non-pressure chronic ulcer of left heel and midfoot with fat layer exposed; F41.9 Anxiety disorder, unspecified; F32.9 Major depressive disorder, single episode, unspecified; K21.9 Gastro-esophageal reflux disease without esophagitis; E66.9 Obesity, unspecified; Z87.891 Personal history of nicotine dependence
CPT/HCPCS: 17250

== ENCOUNTER → 2017-05-06 | Outpatient (CLI) | payer MEDICARE | END | disposition home or self-care (01) | LOC: PMGWOUND 14:02 | PROVIDERS: ATTEND Emergency Medicine Undersea and Hyperbaric Medicine | DX: E11.621 Type 2 diabetes mellitus with foot ulcer (principal); L97.422 Non-pressure chronic ulcer of left heel and midfoot with fat layer exposed; F41.9 Anxiety disorder, unspecified; F32.9 Major depressive disorder, single episode, unspecified; K21.9 Gastro-esophageal reflux disease without esophagitis; E66.9 Obesity, unspecified; Z87.891 Personal history of nicotine dependence | CPT/HCPCS: 99214 ==

== ENCOUNTER → 2017-05-10 | Outpatient (CLI) | payer MEDICARE | END | disposition home or self-care (01) | LOC: PMGWOUND 13:14 | PROVIDERS: ATTEND Emergency Medicine Undersea and Hyperbaric Medicine | DX: E11.621 Type 2 diabetes mellitus with foot ulcer (principal); L97.422 Non-pressure chronic ulcer of left heel and midfoot with fat layer exposed; F32.9 Major depressive disorder, single episode, unspecified; F41.9 Anxiety disorder, unspecified; K21.9 Gastro-esophageal reflux disease without esophagitis; E66.9 Obesity, unspecified; Z87.891 Personal history of nicotine dependence | CPT/HCPCS: 99214 ==

== ENCOUNTER → 2017-05-13 | Outpatient (CLI) | payer MEDICARE | END | disposition home or self-care (01) | LOC: PMGWOUND 13:39 | PROVIDERS: ATTEND Emergency Medicine Undersea and Hyperbaric Medicine | DX: E11.621 Type 2 diabetes mellitus with foot ulcer (principal); L97.422 Non-pressure chronic ulcer of left heel and midfoot with fat layer exposed; F41.9 Anxiety disorder, unspecified; K21.9 Gastro-esophageal reflux disease without esophagitis; F32.9 Major depressive disorder, single episode, unspecified; E66.9 Obesity, unspecified; I48.91 Unspecified atrial fibrillation; E78.00 Pure hypercholesterolemia, unspecified; M19.90 Unspecified osteoarthritis, unspecified site; G20 Parkinson's disease; Z87.891 Personal history of nicotine dependence; Z72.89 Other problems related to lifestyle; Z68.44 Body mass index [BMI] 60.0-69.9, adult | CPT/HCPCS: 99213 ==

== ENCOUNTER → 2017-05-17 | Outpatient (CLI) | payer MEDICARE | END | disposition home or self-care (01) | LOC: PMGWOUND 13:21 | PROVIDERS: ATTEND Emergency Medicine Undersea and Hyperbaric Medicine | DX: E11.621 Type 2 diabetes mellitus with foot ulcer (principal); L97.422 Non-pressure chronic ulcer of left heel and midfoot with fat layer exposed; F41.9 Anxiety disorder, unspecified; K21.9 Gastro-esophageal reflux disease without esophagitis; E78.00 Pure hypercholesterolemia, unspecified; I48.91 Unspecified atrial fibrillation; M19.90 Unspecified osteoarthritis, unspecified site; G20 Parkinson's disease; E66.09 Other obesity due to excess calories; Z87.891 Personal history of nicotine dependence; Z68.44 Body mass index [BMI] 60.0-69.9, adult; Z72.89 Other problems related to lifestyle | CPT/HCPCS: 99214 ==

== ENCOUNTER → 2017-05-20 | Outpatient (CLI) | payer MEDICARE, OTHER | END | disposition home or self-care (01) | LOC: PMGWOUND 10:56 | PROVIDERS: ATTEND Emergency Medicine Undersea and Hyperbaric Medicine | DX: E11.621 Type 2 diabetes mellitus with foot ulcer (principal); L97.422 Non-pressure chronic ulcer of left heel and midfoot with fat layer exposed; F41.9 Anxiety disorder, unspecified; K21.9 Gastro-esophageal reflux disease without esophagitis; G20 Parkinson's disease; E78.00 Pure hypercholesterolemia, unspecified; I48.91 Unspecified atrial fibrillation; F32.9 Major depressive disorder, single episode, unspecified; E66.9 Obesity, unspecified; M19.90 Unspecified osteoarthritis, unspecified site; Z72.89 Other problems related to lifestyle; Z87.891 Personal history of nicotine dependence | CPT/HCPCS: 99214 ==

== ENCOUNTER → 2017-06-07 | Outpatient (CLI) | payer MEDICARE | END | disposition home or self-care (01) | LOC: PMGWOUND 12:51 | PROVIDERS: ATTEND Emergency Medicine Undersea and Hyperbaric Medicine | DX: E11.621 Type 2 diabetes mellitus with foot ulcer (principal); L97.422 Non-pressure chronic ulcer of left heel and midfoot with fat layer exposed; F41.9 Anxiety disorder, unspecified; F32.9 Major depressive disorder, single episode, unspecified; K21.9 Gastro-esophageal reflux disease without esophagitis; Z87.891 Personal history of nicotine dependence; E66.9 Obesity, unspecified; Z68.44 Body mass index [BMI] 60.0-69.9, adult; M19.90 Unspecified osteoarthritis, unspecified site; E78.00 Pure hypercholesterolemia, unspecified; Z72.89 Other problems related to lifestyle | CPT/HCPCS: 99214 ==

== ENCOUNTER → 2017-06-10 | Outpatient (CLI) | payer MEDICARE | END | disposition home or self-care (01) | LOC: PMGWOUND 13:52 | PROVIDERS: ATTEND Emergency Medicine Undersea and Hyperbaric Medicine | DX: E11.621 Type 2 diabetes mellitus with foot ulcer (principal); L97.422 Non-pressure chronic ulcer of left heel and midfoot with fat layer exposed; F41.9 Anxiety disorder, unspecified; K21.9 Gastro-esophageal reflux disease without esophagitis; F32.9 Major depressive disorder, single episode, unspecified; E66.9 Obesity, unspecified; E78.00 Pure hypercholesterolemia, unspecified; G20 Parkinson's disease; I48.91 Unspecified atrial fibrillation; Z87.891 Personal history of nicotine dependence; Z68.44 Body mass index [BMI] 60.0-69.9, adult; Z72.89 Other problems related to lifestyle | CPT/HCPCS: 99215 ==

== ENCOUNTER → 2017-06-15 | Outpatient (CLI) | payer MEDICARE | END | disposition home or self-care (01) | LOC: PMGWOUND 11:15 | PROVIDERS: ATTEND Emergency Medicine Undersea and Hyperbaric Medicine | DX: E11.621 Type 2 diabetes mellitus with foot ulcer (principal); L97.422 Non-pressure chronic ulcer of left heel and midfoot with fat layer exposed; F41.9 Anxiety disorder, unspecified; K21.9 Gastro-esophageal reflux disease without esophagitis; F32.9 Major depressive disorder, single episode, unspecified; G20 Parkinson's disease; E78.00 Pure hypercholesterolemia, unspecified; I48.91 Unspecified atrial fibrillation; M19.90 Unspecified osteoarthritis, unspecified site; E66.09 Other obesity due to excess calories; Z72.89 Other problems related to lifestyle; Z68.44 Body mass index [BMI] 60.0-69.9, adult; Z87.891 Personal history of nicotine dependence | CPT/HCPCS: 11042 ==

== ENCOUNTER → 2017-06-22 | Outpatient (CLI) | payer MEDICARE | END | disposition home or self-care (01) | LOC: PMGWOUND 11:00 | PROVIDERS: ATTEND Emergency Medicine Undersea and Hyperbaric Medicine | DX: E11.621 Type 2 diabetes mellitus with foot ulcer (principal); L97.422 Non-pressure chronic ulcer of left heel and midfoot with fat layer exposed; F32.9 Major depressive disorder, single episode, unspecified; F41.9 Anxiety disorder, unspecified; K21.9 Gastro-esophageal reflux disease without esophagitis; I48.91 Unspecified atrial fibrillation; M19.90 Unspecified osteoarthritis, unspecified site; E78.00 Pure hypercholesterolemia, unspecified; E66.9 Obesity, unspecified; Z68.44 Body mass index [BMI] 60.0-69.9, adult; Z87.891 Personal history of nicotine dependence; Z72.89 Other problems related to lifestyle | CPT/HCPCS: 99214 ==

== ENCOUNTER → 2017-06-24 | Outpatient (CLI) | payer MEDICARE ==
[~2017-06-24] MED LIST changes: +BUPIVACAINE MPF 0.75% 30 ML VIAL. ONE; +MORPHINE SULFATE IV ONE; +cloNIDine PF 5,000 MCG/10 ML VIAL EP ONE
--- NOTE | 2017-06-24 20:34 | PAIN ---
DATE OF SERVICE: 06/24/2017 DIAGNOSES: 1. Post-lumbar laminectomy syndrome. 2. Multiple joint pain. 3. Chronic pain syndrome with intrathecal pump therapy. HISTORY OF PRESENT ILLNESS: The patient is a 67-year-old male who returns for followup status post medication management with intrathecal pump containing morphine, bupivacaine, and clonidine. The patient is doing very well with the infusion of 12.503 mg a day morphine, 35.01 mcg a day clonidine and 2.501 mg a day of bupivacaine. The patient reports his pain fairly well controlled to about a 75 to 80% level. The patient was recently placed in a [facility] in [place], which he reports he likes the facility, had trouble getting transport here today, but he did make it on his appointment today. The patient reports his pain is in the low back mainly, worse with standing, walking, changing positions, mainly from standing to sitting and vice versa. The patient reports when he is sitting still, he feels fairly well. He is sleeping well at night. He does not have excellent sleep at night, but is not because his back pain is waking him. He can reposition, usually get back to sleep if it does. The patient reports the pain is aching, dull, becoming more constant in the low back itself, but again well controlled with the medication regimen at this time. The patient reports his pain is a 9 on a scale 10 at its worst average and a 5 at its least and is 5 today. The patient reports no other complaints except for some difficulty swallowing. He has a toddler nanny, which he is scheduled to see later next week actually. PHYSICAL EXAMINATION: VITAL SIGNS: Today, his blood pressure is 136/40, pulse 69, respirations are 18, temperature 97.2 degrees Fahrenheit, height is 5 feet 8 inches, weight is 292 pounds. GENERAL: The patient is awake, alert, oriented, appropriate, very pleasant demeanor. HEENT: Shows normocephalic, atraumatic. Extraocular movements are intact and symmetrical. Oral cavity: Mucous membranes moist and pink. Dentition is intact. NECK: Shows anterior throat supple without palpable lymphadenopathy noted. Swallow reflex is symmetrical. CHEST: Shows normal on inspection. Breath sounds are clear to auscultation bilaterally. HEART: Shows S1 and S2 clear. No murmurs auscultated. ABDOMEN: Obese, soft, nontender, nondistended. No palpable organomegaly is noted. Easily palpable intrathecal pump on the right lower quadrant, which is mobile and nontender with mobility. EXTREMITIES: The patient's extremities show deep tendon reflexes at 1+ in the patellar and tendo calcaneus tendons. Motor exam is approximately 4 on a scale 5 with dorsiflexion, extension as well as quadriceps and hamstring flexion. Peripheral pulses are 1+ posterior tibial bilaterally. Options were discussed with the patient. The patient's old chart was reviewed as was his current medication regimen and updated. Current review of systems is updated today as well and we will refill patient's intrathecal pump with reprogramming. Risks were discussed including, but not limited to bleeding, infection, possibility of extravasation of the new medication, possible absorption of new medications and resuscitative measures if necessary as well as poor results regarding pain control and programmability of the pump. The patient understands and wished to proceed. The patient will return to the clinic for pump refill prior to 11/26/2017 or earlier if necessary with any questions or concerns or changes in pain status. The patient was counseled as to activity level as well as side effects to be aware with the medication. We will follow up as scheduled. DIAGNOSES: 1. Chronic pain syndrome. 2. Post-lumbar laminectomy syndrome. 3. Multiple joint pain. PROCEDURE: Intrathecal pump refill and reprogramming under sterile prep and drape using topical local anesthetic. MEDICATIONS: Removed 1 mL of old medication using a Bux180 noncutting 22-gauge needle. Pump was accessed without difficulty under sterile prep and drape. 1 mL of old medication once again removed and 40 mL of the new medication replaced, bupivacaine, morphine and clonidine as documented on the patient's flowsheet and pharmacy record without difficulty. Needle was removed. Sterile bandage applied. CONDITION AT DISCHARGE: Stable. The patient tolerated the procedure well, had no complications. ANABEL LOMELI MD DR: ANNA/daron JOB#: [id number] / [id number]
== END | disposition home or self-care (01) ==
LOC: PNCL 11:41
PROVIDERS: ATTEND Anesthesiology
DX: M96.1 Postlaminectomy syndrome, not elsewhere classified (principal); E78.00 Pure hypercholesterolemia, unspecified; D64.9 Anemia, unspecified; I25.10 Atherosclerotic heart disease of native coronary artery without angina pectoris; I10 Essential (primary) hypertension; E66.9 Obesity, unspecified; M19.90 Unspecified osteoarthritis, unspecified site; G62.9 Polyneuropathy, unspecified; F41.9 Anxiety disorder, unspecified; F32.9 Major depressive disorder, single episode, unspecified; Z87.39 Personal history of other diseases of the musculoskeletal system and connective tissue; Z96.653 Presence of artificial knee joint, bilateral; Z96.612 Presence of left artificial shoulder joint; Z87.440 Personal history of urinary (tract) infections; Z96.611 Presence of right artificial shoulder joint; Z86.39 Personal history of other endocrine, nutritional and metabolic disease; Z72.0 Tobacco use; Z86.69 Personal history of other diseases of the nervous system and sense organs; Z72.89 Other problems related to lifestyle; Z88.8 Allergy status to other drugs, medicaments and biological substances
CPT/HCPCS: 62370; J0735; J2270; J3490; 95991

== ENCOUNTER → 2017-06-25 | Outpatient (CLI) | payer MEDICARE ==
[~2017-06-25] MED LIST changes: -BUPIVACAINE MPF 0.75% 30 ML VIAL. ONE; -MORPHINE SULFATE IV ONE; -cloNIDine PF 5,000 MCG/10 ML VIAL EP ONE
== END | disposition home or self-care (01) ==
LOC: PMGWOUND 11:42
PROVIDERS: ATTEND Preventive Medicine Undersea and Hyperbaric Medicine
DX: E11.621 Type 2 diabetes mellitus with foot ulcer (principal); L97.422 Non-pressure chronic ulcer of left heel and midfoot with fat layer exposed; F32.9 Major depressive disorder, single episode, unspecified; F41.9 Anxiety disorder, unspecified; K21.9 Gastro-esophageal reflux disease without esophagitis; I48.91 Unspecified atrial fibrillation; M19.90 Unspecified osteoarthritis, unspecified site; E78.00 Pure hypercholesterolemia, unspecified; E66.9 Obesity, unspecified; G20 Parkinson's disease; G89.29 Other chronic pain; G93.41 Metabolic encephalopathy; J96.10 Chronic respiratory failure, unspecified whether with hypoxia or hypercapnia; Z68.44 Body mass index [BMI] 60.0-69.9, adult; Z87.891 Personal history of nicotine dependence; Z72.89 Other problems related to lifestyle
CPT/HCPCS: 99214

== ENCOUNTER → 2017-06-29 | Outpatient (CLI) | payer MEDICARE | END | disposition home or self-care (01) | LOC: PMGWOUND 11:03 | PROVIDERS: ATTEND Emergency Medicine Undersea and Hyperbaric Medicine | DX: E11.621 Type 2 diabetes mellitus with foot ulcer (principal); L97.422 Non-pressure chronic ulcer of left heel and midfoot with fat layer exposed; F41.9 Anxiety disorder, unspecified; J96.11 Chronic respiratory failure with hypoxia; K21.9 Gastro-esophageal reflux disease without esophagitis; F31.9 Bipolar disorder, unspecified; G93.41 Metabolic encephalopathy; G89.29 Other chronic pain; G20 Parkinson's disease; M19.90 Unspecified osteoarthritis, unspecified site; E78.00 Pure hypercholesterolemia, unspecified; I48.91 Unspecified atrial fibrillation; I25.10 Atherosclerotic heart disease of native coronary artery without angina pectoris; I10 Essential (primary) hypertension; E11.42 Type 2 diabetes mellitus with diabetic polyneuropathy; E66.09 Other obesity due to excess calories; L02.511 Cutaneous abscess of right hand; L03.116 Cellulitis of left lower limb; Z72.89 Other problems related to lifestyle; Z68.41 Body mass index [BMI] 40.0-44.9, adult; Z87.891 Personal history of nicotine dependence; Z86.39 Personal history of other endocrine, nutritional and metabolic disease; Z86.69 Personal history of other diseases of the nervous system and sense organs; Z87.39 Personal history of other diseases of the musculoskeletal system and connective tissue; Z96.653 Presence of artificial knee joint, bilateral; Z96.611 Presence of right artificial shoulder joint | CPT/HCPCS: 10060; 87071; 87075; 87205; 99214 ==

== ENCOUNTER → 2017-07-06 | Outpatient (CLI) | payer MEDICARE | END | disposition home or self-care (01) | LOC: PMGWOUND 11:16 | PROVIDERS: ATTEND Emergency Medicine Undersea and Hyperbaric Medicine | DX: E11.621 Type 2 diabetes mellitus with foot ulcer (principal); L97.422 Non-pressure chronic ulcer of left heel and midfoot with fat layer exposed; E11.42 Type 2 diabetes mellitus with diabetic polyneuropathy; L02.511 Cutaneous abscess of right hand; L03.116 Cellulitis of left lower limb; F41.9 Anxiety disorder, unspecified; I25.10 Atherosclerotic heart disease of native coronary artery without angina pectoris; F31.9 Bipolar disorder, unspecified; I10 Essential (primary) hypertension; K21.9 Gastro-esophageal reflux disease without esophagitis; G89.29 Other chronic pain; E66.09 Other obesity due to excess calories; G20 Parkinson's disease; I48.91 Unspecified atrial fibrillation; E78.00 Pure hypercholesterolemia, unspecified; M19.90 Unspecified osteoarthritis, unspecified site; J96.11 Chronic respiratory failure with hypoxia; Z96.612 Presence of left artificial shoulder joint; Z87.891 Personal history of nicotine dependence; Z68.41 Body mass index [BMI] 40.0-44.9, adult; Z72.89 Other problems related to lifestyle; Z86.69 Personal history of other diseases of the nervous system and sense organs; Z87.39 Personal history of other diseases of the musculoskeletal system and connective tissue; Z86.39 Personal history of other endocrine, nutritional and metabolic disease; Z96.653 Presence of artificial knee joint, bilateral; Z96.611 Presence of right artificial shoulder joint | CPT/HCPCS: 97597 ==

== ENCOUNTER → 2017-07-09 | Outpatient (CLI) | payer MEDICARE ==
[~2017-07-09] MED LIST changes: +FEXO180T16 PO; +NYST15PO2 TP; +ZOLP10TA4 PO
== END | disposition home or self-care (01) ==
LOC: PMGWOUND 08:59
PROVIDERS: ATTEND Preventive Medicine Undersea and Hyperbaric Medicine
DX: E11.621 Type 2 diabetes mellitus with foot ulcer (principal); L97.422 Non-pressure chronic ulcer of left heel and midfoot with fat layer exposed; E11.42 Type 2 diabetes mellitus with diabetic polyneuropathy; L02.511 Cutaneous abscess of right hand; L03.116 Cellulitis of left lower limb; F41.9 Anxiety disorder, unspecified; I25.10 Atherosclerotic heart disease of native coronary artery without angina pectoris; F31.9 Bipolar disorder, unspecified; J96.10 Chronic respiratory failure, unspecified whether with hypoxia or hypercapnia; I10 Essential (primary) hypertension; K21.9 Gastro-esophageal reflux disease without esophagitis; G89.29 Other chronic pain; G20 Parkinson's disease; M19.90 Unspecified osteoarthritis, unspecified site; E78.00 Pure hypercholesterolemia, unspecified; E66.8 Other obesity; Z68.41 Body mass index [BMI] 40.0-44.9, adult; Z96.612 Presence of left artificial shoulder joint; Z96.611 Presence of right artificial shoulder joint; Z72.89 Other problems related to lifestyle; Z96.653 Presence of artificial knee joint, bilateral; Z86.69 Personal history of other diseases of the nervous system and sense organs; Z87.891 Personal history of nicotine dependence; Z87.39 Personal history of other diseases of the musculoskeletal system and connective tissue; Z86.39 Personal history of other endocrine, nutritional and metabolic disease
CPT/HCPCS: 99214

== ENCOUNTER → 2017-07-13 | Outpatient (CLI) | payer MEDICARE | END | disposition home or self-care (01) | LOC: PMGWOUND 10:15 | PROVIDERS: ATTEND Emergency Medicine Undersea and Hyperbaric Medicine | DX: E11.621 Type 2 diabetes mellitus with foot ulcer (principal); L97.424 Non-pressure chronic ulcer of left heel and midfoot with necrosis of bone; E11.42 Type 2 diabetes mellitus with diabetic polyneuropathy; L02.511 Cutaneous abscess of right hand; F41.9 Anxiety disorder, unspecified; I25.10 Atherosclerotic heart disease of native coronary artery without angina pectoris; F31.9 Bipolar disorder, unspecified; J96.10 Chronic respiratory failure, unspecified whether with hypoxia or hypercapnia; I10 Essential (primary) hypertension; K21.9 Gastro-esophageal reflux disease without esophagitis; G89.29 Other chronic pain; G20 Parkinson's disease; M19.90 Unspecified osteoarthritis, unspecified site; E78.00 Pure hypercholesterolemia, unspecified; E66.09 Other obesity due to excess calories; Z68.41 Body mass index [BMI] 40.0-44.9, adult; Z96.611 Presence of right artificial shoulder joint; Z96.612 Presence of left artificial shoulder joint; Z72.89 Other problems related to lifestyle; Z96.653 Presence of artificial knee joint, bilateral; Z86.69 Personal history of other diseases of the nervous system and sense organs; Z87.891 Personal history of nicotine dependence; Z87.39 Personal history of other diseases of the musculoskeletal system and connective tissue; Z86.39 Personal history of other endocrine, nutritional and metabolic disease | CPT/HCPCS: 93922; 97597 ==

== ENCOUNTER → 2017-07-16 | Outpatient (CLI) | payer MEDICARE ==
[~2017-07-16] MED LIST changes: -FEXO180T16 PO; -NYST15PO2 TP; -ZOLP10TA4 PO
[2017-07-16 08:57] LABS: CREATININE 0.9 mg/dL (0.7-1.3); GFR 84.7
== END | disposition home or self-care (01) ==
LOC: PMGWOUND 11:14
PROVIDERS: ATTEND Preventive Medicine Undersea and Hyperbaric Medicine
DX: E11.621 Type 2 diabetes mellitus with foot ulcer (principal); L97.424 Non-pressure chronic ulcer of left heel and midfoot with necrosis of bone; E11.42 Type 2 diabetes mellitus with diabetic polyneuropathy; L02.511 Cutaneous abscess of right hand; F41.9 Anxiety disorder, unspecified; I25.10 Atherosclerotic heart disease of native coronary artery without angina pectoris; F31.9 Bipolar disorder, unspecified; J96.10 Chronic respiratory failure, unspecified whether with hypoxia or hypercapnia; I10 Essential (primary) hypertension; K21.9 Gastro-esophageal reflux disease without esophagitis; G89.29 Other chronic pain; M19.90 Unspecified osteoarthritis, unspecified site; G20 Parkinson's disease; E78.00 Pure hypercholesterolemia, unspecified; E66.09 Other obesity due to excess calories; Z68.41 Body mass index [BMI] 40.0-44.9, adult; Z87.891 Personal history of nicotine dependence; Z96.611 Presence of right artificial shoulder joint; Z96.612 Presence of left artificial shoulder joint; Z72.89 Other problems related to lifestyle; Z96.653 Presence of artificial knee joint, bilateral; Z86.69 Personal history of other diseases of the nervous system and sense organs; Z87.39 Personal history of other diseases of the musculoskeletal system and connective tissue; Z86.39 Personal history of other endocrine, nutritional and metabolic disease
CPT/HCPCS: 36415; 82565; 99213

== ENCOUNTER → 2017-07-16 | Outpatient (CLI) | payer MEDICARE ==
[~2017-07-16] MED LIST changes: +FEXO180T16 PO; +GADOBUTROL 10 MMOL/10 ML VIAL IV ONE; +NYST15PO2 TP; +ZOLP10TA4 PO
--- NOTE | 2017-07-16 12:15 | RAD ---
Examination: MRI of the left foot without and with IV contrast HISTORY: History of nonhealing ulcer Technique: Multiplanar, multisequence MR imaging of the left foot was performed without and with IV contrast. IV contrast was was 10 mL of gadavist Findings: The alignment of the carpal bones grossly appears unremarkable. There is a plantar ulcer identified at the level of the base of the fifth metatarsal extending to the plantar portion of the fifth metatarsal with cortical disruption and corresponding low T1 signal in the proximal portion of the fifth metatarsal with corresponding high T2 signal. There is mild enhancement of the subcutaneous region and the proximal portion of the fifth metatarsal. A small scalloped appearance identified in the plantar cortex of the fifth metatarsal. There is mild increased T2 signal identified in the subcutaneous region and in the soft tissue of the hindfoot and forefoot, probably edema. The visualized Lisfranc ligament appears intact. The attachment of the peroneus brevis, peroneus longus tendon grossly appears intact. IMPRESSION: 1. Findings consistent with osteomyelitis of the proximal base of the fifth metatarsal with an ulcer plantar to the fifth metatarsal extending laterally. There is a small focus of scalloped appearance of the plantar cortex of the fifth metatarsal. Electronically signed by: Chris Corona MD (07/16/2017 12:12 PM) [facility]
== END | disposition home or self-care (01) ==
LOC: MRI 07:54
PROVIDERS: ATTEND Emergency Medicine Undersea and Hyperbaric Medicine
DX: L97.528 Non-pressure chronic ulcer of other part of left foot with other specified severity (principal); M86.8X7 Other osteomyelitis, ankle and foot
CPT/HCPCS: 73720; A9585

== ENCOUNTER → 2017-07-22 | Outpatient (CLI) | payer MEDICARE | END | disposition home or self-care (01) | LOC: PMGWOUND 08:05 | DX: E11.621 Type 2 diabetes mellitus with foot ulcer (principal); L97.424 Non-pressure chronic ulcer of left heel and midfoot with necrosis of bone; E11.69 Type 2 diabetes mellitus with other specified complication; M86.8X7 Other osteomyelitis, ankle and foot; E11.42 Type 2 diabetes mellitus with diabetic polyneuropathy; F41.9 Anxiety disorder, unspecified; I25.10 Atherosclerotic heart disease of native coronary artery without angina pectoris; F31.9 Bipolar disorder, unspecified; J96.10 Chronic respiratory failure, unspecified whether with hypoxia or hypercapnia; I10 Essential (primary) hypertension; K21.9 Gastro-esophageal reflux disease without esophagitis; G89.29 Other chronic pain; M19.90 Unspecified osteoarthritis, unspecified site; G20 Parkinson's disease; J96.11 Chronic respiratory failure with hypoxia; E78.00 Pure hypercholesterolemia, unspecified; E66.09 Other obesity due to excess calories; Z68.41 Body mass index [BMI] 40.0-44.9, adult; Z87.891 Personal history of nicotine dependence; Z96.612 Presence of left artificial shoulder joint; Z72.89 Other problems related to lifestyle; Z96.653 Presence of artificial knee joint, bilateral; Z86.69 Personal history of other diseases of the nervous system and sense organs; Z87.39 Personal history of other diseases of the musculoskeletal system and connective tissue; Z86.39 Personal history of other endocrine, nutritional and metabolic disease | CPT/HCPCS: 99214 ==

== ENCOUNTER 2017-08-26 03:27 | Inpatient (IN) | payer MEDICARE, OTHER ==
[2017-08-26] MEDS: ONDANSETRON PF 4 MG/2 ML VIAL. IV (04:12)
[2017-08-26] MEDS: IV NORMAL SALINE 1000ML BAG 500 ML IV (04:12)
[2017-08-26 04:22] LABS: ADD MAN DIFF? NO
[2017-08-26 04:27] LABS: BASO % 0 % (0-3); EOS # 0.6 x10^3/uL (0.0-0.7); EOS % 5 % (0-3); HEMOGLOBIN 11.1 g/dL (13.0-17.5); LYMPH # 1.3 x10^3/uL (1.0-4.8); LYMPH % 11 % (24-48); MEAN CORPUSCULAR HEMOGLOBIN 29 pg (25-35); MEAN CORPUSCULAR HGB CONC 32 g/dL (31-37); MEAN CORPUSCULAR VOLUME 91 fL (79-100); MONO # 0.9 x10^3/uL (0.0-1.1); MONO % 7 % (0-9); NEUT % 76 % (31-73); PLATELET COUNT 360 x10^3/uL (140-400); RED BLOOD COUNT 3.87 x10^6/uL (4.30-5.70); RED CELL DISTRIBUTION WIDTH 21.4 % (11.5-14.5); WHITE BLOOD COUNT 11.8 x10^3/uL (4.0-11.0)
[2017-08-26 04:38] LABS: ANION GAP 11 (6-14); BLOOD UREA NITROGEN 88 mg/dL (8-26); BUN/CREATININE RATIO 40 (6-20); CALCIUM 9.8 mg/dL (8.5-10.1); CARBON DIOXIDE 30 mmol/L (21-32); CHLORIDE 117 mmol/L (98-107); CREATININE 2.2 mg/dL (0.7-1.3); GFR 30.2; GLUCOSE 188 mg/dL (70-99); POTASSIUM 4.2 mmol/L (3.5-5.1); SODIUM 158 mmol/L (136-145)
[2017-08-26 04:43] LABS: ALBUMIN 2.3 g/dL (3.4-5.0); ALBUMIN/GLOBULIN RATIO 0.5 (1.0-1.7); ALK PHOS 135 U/L (46-116); ALT (SGPT) 23 U/L (16-63); AST (SGOT) 31 U/L (15-37); TOTAL BILIRUBIN 0.2 mg/dL (0.2-1.0); TOTAL PROTEIN 7.2 g/dL (6.4-8.2)
[2017-08-26 04:45] LABS: LACTIC ACID 1.5 mmol/L (0.4-2.0)
[2017-08-26 04:46] LABS: TROPONINI < 0.017 ng/mL (0.000-0.055)
[2017-08-26 04:52] LABS: CKMB INDEX 1.6 % (0-4); CREATINE KINASE 183 U/L (39-308)
[2017-08-26 04:52] LABS: NT-PRO BNP 337 pg/mL (0-124)
[2017-08-26] MEDS ORDERED: ONDANSETRON PF 4 MG/2 ML VIAL. IV (05:00)
[2017-08-26] MEDS: IV NORMAL SALINE 1000ML BAG 1,000 ML IV ×2 (05:00→05:15)
[2017-08-26 08:00] LABS: POC GLUCOSE 119 mg/dL (70-99)
[2017-08-26 09:21] LABS: PLT ESTIMATE ADEQUATE (ADEQUATE)
[2017-08-26 09:22] LABS: ANISOCYTOSIS PRESENT
[2017-08-26] MEDS: HALOPERIDOL LACTATE 5 MG/ML VIAL. IVP ×2 (09:41→18:27)
[2017-08-26] MEDS ORDERED: LABETALOL 20 MG/4 ML DISP.SYRIN. IV (09:45)
[2017-08-26] MEDS ORDERED: NON FORMULARY ITEM (Melatonin 1 TAB) PEG (09:45)
[2017-08-26] MEDS: NYSTATIN TOPICAL POWDER 15GM BOTTLE. TP ×2 (10:30→21:34)
[2017-08-26] MEDS: IPRATRPIUM/ALBUTEROL 0.5/2.5MG 3 ML NEBU. NEB ×2 (10:30→20:00)
[2017-08-26] MEDS: TAMSULOSIN 0.4 MG CAP.ER.24H. PO (10:30)
[2017-08-26] MEDS: LUBIPROSTONE 8 MCG CAPSULE PO ×2 (10:34→17:00)
[2017-08-26] MEDS: metFORMIN 500 MG TABLET PO ×2 (10:34→17:00)
[2017-08-26] MEDS: HYDROcodone/APAP 5/325MG 1 TAB TABLET PEG ×2 (10:51→16:00)
[2017-08-26] MEDS: FUROSEMIDE 20 MG TABLET PEG (10:51)
[2017-08-26] MEDS: LINEZOLID 600 MG TABLET PEG ×2 (10:51→21:33)
[2017-08-26] MEDS: CARBIDOPA/LEVODOPA 25/100MG TABLET PEG ×3 (10:51→21:33)
[2017-08-26] MEDS: MULTIVITAMIN with MINERAL TABLET. PO (10:51)
[2017-08-26] MEDS: PANTOPRAZOLE 40 MG TABLET.DR. PO (10:51)
[2017-08-26] MEDS: ENOXAPARIN 40 MG/0.4 ML SYRINGE. SQ ×2 (10:59→21:34)
[2017-08-26] MEDS: ENALAPRILAT 1.25 MG/ML VIAL. IV ×2 (11:00→21:33)
[2017-08-26] MEDS: METOCLOPRAMIDE HCL 10 MG/2 ML VIAL. IV ×2 (11:01→18:20)
[2017-08-26] MEDS: PIPERACILLIN/TAZOBACTAM 3.375 GM in IV NORMAL SALINE 50ML 50 ML IV ×3 (11:07→23:38)
[2017-08-26] MEDS ORDERED: PIPERACILLIN/TAZOBACTAM 3.375 GM VIAL IV (12:00)
[2017-08-26] MEDS: LIDOCAINE (700MG/PATCH) PATCH. TD (14:30)
[2017-08-26] MEDS: ALTEPLASE 2 MG VIAL INT CAT (17:45)
[2017-08-26 19:00] LABS: POC GLUCOSE 124 mg/dL (70-99)
[2017-08-26 22:15] LABS: MRSA BY PCR Negative (Negative)
[2017-08-27 02:31] LABS: POC GLUCOSE 146 mg/dL (70-99)
[2017-08-27] MEDS: PIPERACILLIN/TAZOBACTAM 3.375 GM in IV NORMAL SALINE 50ML 50 ML IV ×3 (05:12→18:29)
[2017-08-27 06:28] LABS: POC GLUCOSE 123 mg/dL (70-99)
[2017-08-27] MEDS: PANTOPRAZOLE 40 MG TABLET.DR. PO (07:30)
[2017-08-27] MEDS: METOCLOPRAMIDE HCL 10 MG/2 ML VIAL. IV (07:31)
[2017-08-27] MEDS: HALOPERIDOL LACTATE 5 MG/ML VIAL. IVP ×2 (07:33→16:44)
[2017-08-27] MEDS: LUBIPROSTONE 8 MCG CAPSULE PO ×2 (08:00→14:25)
[2017-08-27] MEDS: IPRATRPIUM/ALBUTEROL 0.5/2.5MG 3 ML NEBU. NEB ×2 (08:42→18:39)
[2017-08-27] MEDS: TAMSULOSIN 0.4 MG CAP.ER.24H. PO (09:00)
[2017-08-27] MEDS: PANTOPRAZOLE IV PUSH 40 MG VIAL. IVP (09:47)
[2017-08-27] MEDS: metFORMIN 500 MG TABLET PO ×2 (09:48→18:29)
[2017-08-27] MEDS: LIDOCAINE (700MG/PATCH) PATCH. TD (09:48)
[2017-08-27] MEDS: LINEZOLID 600 MG TABLET PEG ×2 (09:48→20:08)
[2017-08-27] MEDS: ENOXAPARIN 40 MG/0.4 ML SYRINGE. SQ ×2 (09:48→20:07)
[2017-08-27] MEDS: FUROSEMIDE 20 MG TABLET PEG (09:48)
[2017-08-27] MEDS: MULTIVITAMIN with MINERAL TABLET. PO (09:48)
[2017-08-27] MEDS: CARBIDOPA/LEVODOPA 25/100MG TABLET PEG ×3 (09:48→20:08)
[2017-08-27] MEDS: ENALAPRILAT 1.25 MG/ML VIAL. IV ×2 (09:49→20:29)
[2017-08-27] MEDS: HYDROcodone/APAP 5/325MG 1 TAB TABLET PEG ×3 (09:49→20:08)
[2017-08-27] MEDS: NYSTATIN TOPICAL POWDER 15GM BOTTLE. TP ×2 (09:50→20:29)
[2017-08-27 12:54] LABS: POC GLUCOSE 140 mg/dL (70-99)
[2017-08-27] MEDS: AMINO AC 3%/ELECTROLYTE/GLYCER 1,000 ML IV (15:15)
[2017-08-27 15:27] LABS: ANION GAP 11 (6-14); BLOOD UREA NITROGEN 55 mg/dL (8-26); CALCIUM 9.7 mg/dL (8.5-10.1); CARBON DIOXIDE 28 mmol/L (21-32); CHLORIDE 120 mmol/L (98-107); CREATININE 1.7 mg/dL (0.7-1.3); GFR 40.7; GLUCOSE 153 mg/dL (70-99); SODIUM 159 mmol/L (136-145)
[2017-08-27 17:56] LABS: BASE EXCESS ABG 4 mmol/L (-3-3); HCO3 ABG 27 mmol/L (21-28); PCO2 ABG 38 mmHg (35-46); PH ABG 7.48 (7.35-7.45); PO2 ABG 85 mmHg (65-108); SAT O2 ABG 96 % (92-99)
[2017-08-27] MEDS: IV 1/2 NORMAL SALINE 1,000 ML IV (18:29)
[2017-08-27 20:01] LABS: POC GLUCOSE 127 mg/dL (70-99)
[2017-08-27 22:16] LABS: POC GLUCOSE 128 mg/dL (70-99)
[2017-08-28] MEDS: PIPERACILLIN/TAZOBACTAM 3.375 GM in IV NORMAL SALINE 50ML 50 ML IV ×5 (00:24→23:50)
[2017-08-28 01:12] LABS: POC GLUCOSE 152 mg/dL (70-99)
[2017-08-28] MEDS: HYDROcodone/APAP 5/325MG 1 TAB TABLET PEG ×4 (02:28→21:20)
[2017-08-28 07:05] LABS: HEMATOCRIT 30.4 % (39.0-53.0); HEMOGLOBIN 9.9 g/dL (13.0-17.5); MEAN CORPUSCULAR HEMOGLOBIN 30 pg (25-35); MEAN CORPUSCULAR HGB CONC 33 g/dL (31-37); MEAN CORPUSCULAR VOLUME 91 fL (79-100); PLATELET COUNT 304 x10^3/uL (140-400); RED BLOOD COUNT 3.34 x10^6/uL (4.30-5.70); WHITE BLOOD COUNT 11.1 x10^3/uL (4.0-11.0)
[2017-08-28 07:15] LABS: ANION GAP 9 (6-14); BLOOD UREA NITROGEN 48 mg/dL (8-26); CARBON DIOXIDE 30 mmol/L (21-32); CHLORIDE 119 mmol/L (98-107); CREATININE 1.7 mg/dL (0.7-1.3); GFR 40.7; GLUCOSE 173 mg/dL (70-99); POTASSIUM 3.8 mmol/L (3.5-5.1); SODIUM 158 mmol/L (136-145)
[2017-08-28] MEDS: IPRATRPIUM/ALBUTEROL 0.5/2.5MG 3 ML NEBU. NEB ×4 (07:44→20:06)
[2017-08-28 07:49] LABS: POC GLUCOSE 157 mg/dL (70-99)
[2017-08-28] MEDS: LINEZOLID 600 MG TABLET PEG ×2 (08:33→21:19)
[2017-08-28] MEDS: CARBIDOPA/LEVODOPA 25/100MG TABLET PEG ×3 (08:33→21:19)
[2017-08-28] MEDS: FUROSEMIDE 20 MG TABLET PEG (08:33)
[2017-08-28] MEDS: metFORMIN 500 MG TABLET PO ×2 (08:33→17:58)
[2017-08-28] MEDS: MULTIVITAMIN with MINERAL TABLET. PO (08:33)
[2017-08-28] MEDS: ENALAPRILAT 1.25 MG/ML VIAL. IV ×2 (08:35→21:20)
[2017-08-28] MEDS: ENOXAPARIN 40 MG/0.4 ML SYRINGE. SQ ×2 (08:37→21:19)
[2017-08-28] MEDS: PANTOPRAZOLE IV PUSH 40 MG VIAL. IVP (08:37)
[2017-08-28] MEDS: LIDOCAINE (700MG/PATCH) PATCH. TD (08:37)
[2017-08-28] MEDS: LUBIPROSTONE 8 MCG CAPSULE PO ×2 (08:54→17:51)
[2017-08-28] MEDS: NYSTATIN TOPICAL POWDER 15GM BOTTLE. TP ×2 (08:55→21:41)
[2017-08-28] MEDS: TAMSULOSIN 0.4 MG CAP.ER.24H. PO (08:57)
[2017-08-28 12:25] LABS: RETIC COUNT 0.8 % (0.5-2.5)
[2017-08-28 12:34] LABS: % SAT IRON 18 % (15-34); IRON,SERUM 27 ug/dL (65-175)
[2017-08-28 12:50] LABS: FERRITIN 167 ng/mL (26-388)
[2017-08-28] MEDS: IV DEXTROSE 5% 1,000 ML IV ×2 (13:37→21:42)
[2017-08-28 15:47] LABS: POC GLUCOSE 139 mg/dL (70-99)
[2017-08-28 23:07] LABS: C DIFF BY PCR Negative (Negative)
[2017-08-29] MEDS: PIPERACILLIN/TAZOBACTAM 3.375 GM in IV NORMAL SALINE 50ML 50 ML IV ×3 (05:46→19:41)
[2017-08-29] MEDS: ONDANSETRON PF 4 MG/2 ML VIAL. IV (06:33)
[2017-08-29 06:59] LABS: POC GLUCOSE 166 mg/dL (70-99)
[2017-08-29] MEDS: IPRATRPIUM/ALBUTEROL 0.5/2.5MG 3 ML NEBU. NEB ×2 (08:02→20:41)
[2017-08-29 08:11] LABS: POC GLUCOSE 175 mg/dL (70-99)
[2017-08-29] MEDS: LUBIPROSTONE 8 MCG CAPSULE PO ×2 (10:27→15:52)
[2017-08-29] MEDS: PANTOPRAZOLE IV PUSH 40 MG VIAL. IVP (10:29)
[2017-08-29] MEDS: ENOXAPARIN 40 MG/0.4 ML SYRINGE. SQ ×2 (10:29→20:14)
[2017-08-29] MEDS: ENALAPRILAT 1.25 MG/ML VIAL. IV ×2 (10:30→20:23)
[2017-08-29] MEDS: LINEZOLID 600 MG TABLET PEG ×2 (10:30→20:26)
[2017-08-29] MEDS: TAMSULOSIN 0.4 MG CAP.ER.24H. PO (10:30)
[2017-08-29] MEDS: metFORMIN 500 MG TABLET PO ×2 (10:31→15:53)
[2017-08-29] MEDS: IV DEXTROSE 5% 1,000 ML IV ×2 (10:31→15:53)
[2017-08-29] MEDS: FUROSEMIDE 20 MG TABLET PEG (10:31)
[2017-08-29] MEDS: LIDOCAINE (700MG/PATCH) PATCH. TD (10:31)
[2017-08-29] MEDS: HYDROcodone/APAP 5/325MG 1 TAB TABLET PEG ×2 (10:31→20:14)
[2017-08-29] MEDS: MULTIVITAMIN with MINERAL TABLET. PO (10:31)
[2017-08-29] MEDS: CARBIDOPA/LEVODOPA 25/100MG TABLET PEG ×3 (10:31→20:14)
[2017-08-29] MEDS: NYSTATIN TOPICAL POWDER 15GM BOTTLE. TP ×2 (10:32→20:25)
[2017-08-29 13:23] LABS: POC GLUCOSE 139 mg/dL (70-99)
[2017-08-30] MEDS: PIPERACILLIN/TAZOBACTAM 3.375 GM in IV NORMAL SALINE 50ML 50 ML IV ×5 (00:10→23:26)
[2017-08-30 00:18] LABS: POC GLUCOSE 150 mg/dL (70-99)
[2017-08-30] MEDS: IV DEXTROSE 5% 1,000 ML IV ×3 (05:10→23:27)
[2017-08-30 06:13] LABS: POC GLUCOSE 144 mg/dL (70-99)
[2017-08-30] MEDS: LUBIPROSTONE 8 MCG CAPSULE PO ×2 (08:00→16:43)
[2017-08-30 08:28] LABS: ALBUMIN 1.9 g/dL (3.4-5.0); ANION GAP 8 (6-14); BLOOD UREA NITROGEN 34 mg/dL (8-26); CALCIUM 8.2 mg/dL (8.5-10.1); CARBON DIOXIDE 30 mmol/L (21-32); CHLORIDE 105 mmol/L (98-107); CREATININE 1.4 mg/dL (0.7-1.3); GFR 50.9; GLUCOSE 161 mg/dL (70-99); PHOSPHORUS 3.6 mg/dL (2.6-4.7); POTASSIUM 3.7 mmol/L (3.5-5.1); SODIUM 143 mmol/L (136-145)
[2017-08-30] MEDS: NYSTATIN TOPICAL POWDER 15GM BOTTLE. TP ×2 (09:00→20:49)
[2017-08-30] MEDS: TAMSULOSIN 0.4 MG CAP.ER.24H. PO (09:00)
[2017-08-30] MEDS: ENALAPRILAT 1.25 MG/ML VIAL. IV ×2 (10:46→20:47)
[2017-08-30] MEDS: HALOPERIDOL LACTATE 5 MG/ML VIAL. IVP ×2 (10:47→20:48)
[2017-08-30] MEDS: PANTOPRAZOLE IV PUSH 40 MG VIAL. IVP (10:47)
[2017-08-30] MEDS: HYDROcodone/APAP 5/325MG 1 TAB TABLET PEG ×3 (10:47→20:46)
[2017-08-30] MEDS: metFORMIN 500 MG TABLET PO ×2 (10:48→16:01)
[2017-08-30] MEDS: LINEZOLID 600 MG TABLET PEG ×2 (10:48→20:46)
[2017-08-30] MEDS: ENOXAPARIN 40 MG/0.4 ML SYRINGE. SQ ×2 (10:48→20:49)
[2017-08-30] MEDS: LIDOCAINE (700MG/PATCH) PATCH. TD (10:48)
[2017-08-30] MEDS: CARBIDOPA/LEVODOPA 25/100MG TABLET PEG ×3 (10:48→20:46)
[2017-08-30] MEDS: MULTIVITAMIN with MINERAL TABLET. PO (10:48)
[2017-08-30 12:04] LABS: POC GLUCOSE 137 mg/dL (70-99)
[2017-08-30] MEDS: IRON SUCROSE COMPLEX 200 MG in TOTAL VOLUME SYRINGE 0 ML IVP (13:08)
[2017-08-30 18:52] LABS: POC GLUCOSE 105 mg/dL (70-99)
[2017-08-30] MEDS: IPRATRPIUM/ALBUTEROL 0.5/2.5MG 3 ML NEBU. NEB (20:00)
[2017-08-31 03:50] LABS: POC GLUCOSE 134 mg/dL (70-99)
[2017-08-31] MEDS: HALOPERIDOL LACTATE 5 MG/ML VIAL. IVP ×2 (04:49→14:07)
[2017-08-31] MEDS: HYDROcodone/APAP 5/325MG 1 TAB TABLET PEG ×3 (04:50→15:44)
[2017-08-31 05:45] LABS: ALBUMIN 1.8 g/dL (3.4-5.0); ANION GAP 8 (6-14); BLOOD UREA NITROGEN 36 mg/dL (8-26); CARBON DIOXIDE 31 mmol/L (21-32); CHLORIDE 100 mmol/L (98-107); CREATININE 1.5 mg/dL (0.7-1.3); GLUCOSE 139 mg/dL (70-99); PHOSPHORUS 3.1 mg/dL (2.6-4.7); POTASSIUM 3.4 mmol/L (3.5-5.1); SODIUM 139 mmol/L (136-145)
[2017-08-31] MEDS: PIPERACILLIN/TAZOBACTAM 3.375 GM in IV NORMAL SALINE 50ML 50 ML IV ×4 (05:56→22:06)
[2017-08-31 07:56] LABS: POC GLUCOSE 133 mg/dL (70-99)
[2017-08-31] MEDS: LUBIPROSTONE 8 MCG CAPSULE PO (08:00)
[2017-08-31] MEDS: IPRATRPIUM/ALBUTEROL 0.5/2.5MG 3 ML NEBU. NEB ×3 (08:21→18:13)
[2017-08-31] MEDS: TAMSULOSIN 0.4 MG CAP.ER.24H. PO (09:00)
[2017-08-31] MEDS: ENALAPRILAT 1.25 MG/ML VIAL. IV (09:00)
[2017-08-31] MEDS: NYSTATIN TOPICAL POWDER 15GM BOTTLE. TP ×2 (09:00→21:00)
[2017-08-31] MEDS: IV DEXTROSE 5% 1,000 ML IV (09:15)
[2017-08-31] MEDS ORDERED: POTASSIUM CHLORIDE 20MEQ 50 ML IV ×2 (10:45)
[2017-08-31] MEDS ORDERED: POTASSIUM CHLORIDE 20 MEQ in IV 1/2 NORMAL SALINE 1,000 ML IV (10:45)
[2017-08-31] MEDS ORDERED: MAGNESIUM SULFATE 2GM 50 ML IV (10:45)
[2017-08-31] MEDS: IV NORMAL SALINE 500ML BAG 500 ML IV (11:17)
[2017-08-31] MEDS: MULTIVITAMIN with MINERAL TABLET. PO (11:18)
[2017-08-31] MEDS: LINEZOLID 600 MG TABLET PEG ×2 (11:18→22:06)
[2017-08-31] MEDS: POTASSIUM CL 20MEQ-0.45% NACL 1,000 ML IV (11:18)
[2017-08-31] MEDS: CARBIDOPA/LEVODOPA 25/100MG TABLET PEG ×3 (11:18→22:06)
[2017-08-31] MEDS: metFORMIN 500 MG TABLET PO ×2 (11:18→15:44)
[2017-08-31] MEDS: ENOXAPARIN 40 MG/0.4 ML SYRINGE. SQ ×2 (11:19→22:10)
[2017-08-31] MEDS: LIDOCAINE (700MG/PATCH) PATCH. TD (11:20)
[2017-08-31] MEDS: PANTOPRAZOLE IV PUSH 40 MG VIAL. IVP (11:20)
[2017-08-31 11:47] LABS: POC GLUCOSE 135 mg/dL (70-99)
[2017-08-31 12:12] LABS: POTASSIUM 3.4 mmol/L (3.5-5.1)
[2017-08-31] MEDS: ONDANSETRON PF 4 MG/2 ML VIAL. IV (14:07)
[2017-08-31] MEDS: LOPERAMIDE 2 MG/10 ML ORAL SOLUTION. PEG (14:07)
[2017-08-31 17:07] LABS: POC GLUCOSE 114 mg/dL (70-99)
[2017-08-31 18:09] LABS: POTASSIUM 3.7 mmol/L (3.5-5.1)
[2017-09-01 00:53] LABS: POC GLUCOSE 114 mg/dL (70-99)
[2017-09-01] MEDS: POTASSIUM CL 20MEQ-0.45% NACL 1,000 ML IV (02:17)
[2017-09-01] MEDS: LOPERAMIDE 2 MG/10 ML ORAL SOLUTION. PEG (02:17)
[2017-09-01] MEDS: PIPERACILLIN/TAZOBACTAM 3.375 GM in IV NORMAL SALINE 50ML 50 ML IV ×2 (06:19→13:12)
[2017-09-01] MEDS: TAMSULOSIN 0.4 MG CAP.ER.24H. PO (08:10)
[2017-09-01] MEDS: metFORMIN 500 MG TABLET PO ×2 (08:10→17:00)
[2017-09-01] MEDS: LANSOPRAZOLE 30 MG TAB.RAP.DR FT (08:10)
[2017-09-01] MEDS: HYDROcodone/APAP 5/325MG 1 TAB TABLET PEG ×3 (08:10→16:11)
[2017-09-01] MEDS: MULTIVITAMIN with MINERAL TABLET. PO (08:10)
[2017-09-01] MEDS: LINEZOLID 600 MG TABLET PEG (08:10)
[2017-09-01] MEDS: CARBIDOPA/LEVODOPA 25/100MG TABLET PEG ×2 (08:10→16:12)
[2017-09-01] MEDS ORDERED: IRON SUCROSE COMPLEX 200 MG in IV NORMAL SALINE 100ML 100 ML IV (09:00)
[2017-09-01 10:01] LABS: ALBUMIN 1.8 g/dL (3.4-5.0); ANION GAP 4 (6-14); BLOOD UREA NITROGEN 21 mg/dL (8-26); CALCIUM 7.9 mg/dL (8.5-10.1); CARBON DIOXIDE 32 mmol/L (21-32); CHLORIDE 101 mmol/L (98-107); CREATININE 0.9 mg/dL (0.7-1.3); GFR 84.7; GLUCOSE 145 mg/dL (70-99); MAGNESIUM 1.7 mg/dL (1.8-2.4); PHOSPHORUS 2.5 mg/dL (2.6-4.7); POTASSIUM 4.1 mmol/L (3.5-5.1); SODIUM 137 mmol/L (136-145)
[2017-09-01] MEDS: LIDOCAINE (700MG/PATCH) PATCH. TD (11:59)
[2017-09-01] MEDS: POTASSIUM & SODIUM PHOSPHATES PACKET. PO (12:00)
[2017-09-01] MEDS: ENOXAPARIN 40 MG/0.4 ML SYRINGE. SQ (12:01)
[2017-09-01] MEDS: NYSTATIN TOPICAL POWDER 15GM BOTTLE. TP (12:01)
[2017-09-01] MEDS: IRON SUCROSE COMPLEX 200 MG in TOTAL VOLUME SYRINGE 0 ML IVP (12:10)
[2017-09-01] MEDS: MAGNESIUM SULFATE 1GM 100 ML IV (12:10)
[2017-09-01] MEDS: HALOPERIDOL LACTATE 5 MG/ML VIAL. IVP (16:11)
[2017-09-01 17:09] LABS: POC GLUCOSE 122 mg/dL (70-99)
[2017-09-01 17:09] LABS: POC GLUCOSE 130 mg/dL (70-99)
[2017-09-01] MEDS ORDERED: ACETAMINOPHEN 325 MG TABLET. PO (19:30)
== END 2017-09-01 20:00 | DRG 682 ==
LOC: ER 03:27 → 6 SOUTH 05:18
PROC: 5A09357 Assistance with Respiratory Ventilation, Less than 24 Consecutive Hours, Continuous Positive Airway Pressure (ICD-10-PCS; principal; 2017-08-29)
PROC: 5A09357 Assistance with Respiratory Ventilation, Less than 24 Consecutive Hours, Continuous Positive Airway Pressure (ICD-10-PCS; 2017-08-29)
DX: N17.9 Acute kidney failure, unspecified (principal); G92 Toxic encephalopathy; J96.00 Acute respiratory failure, unspecified whether with hypoxia or hypercapnia; E87.0 Hyperosmolality and hypernatremia; E11.42 Type 2 diabetes mellitus with diabetic polyneuropathy; E87.8 Other disorders of electrolyte and fluid balance, not elsewhere classified; M86.9 Osteomyelitis, unspecified; E66.2 Morbid (severe) obesity with alveolar hypoventilation; Z68.42 Body mass index [BMI] 45.0-49.9, adult; E11.69 Type 2 diabetes mellitus with other specified complication; M19.90 Unspecified osteoarthritis, unspecified site; E11.51 Type 2 diabetes mellitus with diabetic peripheral angiopathy without gangrene; E11.621 Type 2 diabetes mellitus with foot ulcer; E78.00 Pure hypercholesterolemia, unspecified; E78.5 Hyperlipidemia, unspecified; F32.9 Major depressive disorder, single episode, unspecified; F41.9 Anxiety disorder, unspecified; G20 Parkinson's disease; G89.4 Chronic pain syndrome; H91.90 Unspecified hearing loss, unspecified ear; I10 Essential (primary) hypertension; I25.10 Atherosclerotic heart disease of native coronary artery without angina pectoris; J44.9 Chronic obstructive pulmonary disease, unspecified; K21.9 Gastro-esophageal reflux disease without esophagitis; L97.529 Non-pressure chronic ulcer of other part of left foot with unspecified severity; Z96.651 Presence of right artificial knee joint; Z96.649 Presence of unspecified artificial hip joint; Z93.1 Gastrostomy status; Z87.891 Personal history of nicotine dependence; Z85.07 Personal history of malignant neoplasm of pancreas; Z82.0 Family history of epilepsy and other diseases of the nervous system; Z80.0 Family history of malignant neoplasm of digestive organs; Z88.8 Allergy status to other drugs, medicaments and biological substances; Z91.041 Radiographic dye allergy status; E86.0 Dehydration; R13.10 Dysphagia, unspecified
CPT/HCPCS: 36415; 36569; 36600; 71045; 80048; 80053; 80069; 82553; 82728; 82805; 82962; 83540; 83550; 83605; 83735; 83880; 84132; 84484; 85025; 85027; 85045; 87040; 87324; 87641; 93005; 93971; 94640; 94660; 94760; C9113; J1630; J1650; J1756; J2060; J2405; J2543; J2765; J3475; J7030; J7040; J7620

== ENCOUNTER 2017-09-07 04:18 | Inpatient (IN) | payer MEDICARE, OTHER ==
[2017-09-07 05:24] LABS: BASO % 0 % (0-3); EOS # 0.1 x10^3/uL (0.0-0.7); EOS % 1 % (0-3); HEMOGLOBIN 10.5 g/dL (13.0-17.5); LYMPH # 0.6 x10^3/uL (1.0-4.8); LYMPH % 3 % (24-48); MEAN CORPUSCULAR HEMOGLOBIN 29 pg (25-35); MEAN CORPUSCULAR HGB CONC 32 g/dL (31-37); MEAN CORPUSCULAR VOLUME 90 fL (79-100); MONO # 1.4 x10^3/uL (0.0-1.1); MONO % 8 % (0-9); NEUT # 15.7 x10^3uL (1.8-7.7); NEUT % 88 % (31-73); PLATELET COUNT 449 x10^3/uL (140-400); RED BLOOD COUNT 3.67 x10^6/uL (4.30-5.70); RED CELL DISTRIBUTION WIDTH 20.2 % (11.5-14.5); WHITE BLOOD COUNT 17.8 x10^3/uL (4.0-11.0)
[2017-09-07 05:30] LABS: INFLUENZA A PATIENT NEGATIVE (NEGATIVE); INFLUENZA B PATIENT NEGATIVE (NEGATIVE); OBC FLU VALID
[2017-09-07] MEDS ORDERED: ONDANSETRON PF 4 MG/2 ML VIAL. IV (05:30)
[2017-09-07 05:35] LABS: ANION GAP 5 (6-14); BLOOD UREA NITROGEN 18 mg/dL (8-26); BUN/CREATININE RATIO 26 (6-20); CALCIUM 9.5 mg/dL (8.5-10.1); CARBON DIOXIDE 34 mmol/L (21-32); CHLORIDE 97 mmol/L (98-107); CREATININE 0.7 mg/dL (0.7-1.3); GFR 113.2; GLUCOSE 156 mg/dL (70-99); POTASSIUM 4.3 mmol/L (3.5-5.1); SODIUM 136 mmol/L (136-145)
[2017-09-07 05:41] LABS: ADD MAN DIFF? YES; ALBUMIN 2.2 g/dL (3.4-5.0); ALBUMIN/GLOBULIN RATIO 0.5 (1.0-1.7); ALK PHOS 113 U/L (46-116); ALT (SGPT) 23 U/L (16-63); AST (SGOT) 35 U/L (15-37); LIPASE 93 U/L (73-393); MAGNESIUM 1.5 mg/dL (1.8-2.4); TOTAL BILIRUBIN 0.3 mg/dL (0.2-1.0); TOTAL PROTEIN 6.8 g/dL (6.4-8.2)
[2017-09-07 05:45] LABS: TROPONINI < 0.017 ng/mL (0.000-0.055)
[2017-09-07 05:46] LABS: NT-PRO BNP 903 pg/mL (0-124)
[2017-09-07 05:55] LABS: THYROID STIM HORMONE (TSH) 0.678 uIU/mL (0.358-3.74)
[2017-09-07] MEDS: PIPERACILLIN/TAZOBACTAM 3.375 GM in IV NORMAL SALINE 50ML 50 ML IV ×3 (06:15→20:10)
[2017-09-07 06:19] LABS: PARTIAL THROMBOPLASTIN TIME 31 SEC (24-38); PROTHROMBIN TIME PATIENT 12.9 SEC (11.7-14.0)
[2017-09-07] MEDS: IV NORMAL SALINE 1000ML BAG 1,000 ML IV ×2 (06:45)
[2017-09-07 09:25] LABS: % BANDS 2 % (0-9); % LYMPHS 2 % (24-48); % MONOS 4 % (0-10); % SEGS 92 % (35-66); ANISOCYTOSIS MOD; PLT ESTIMATE INCREASED (ADEQUATE)
[2017-09-07] MEDS: ACETAMINOPHEN 650 MG/20.3 ML SOLUTION. PEG ×2 (15:40→21:35)
[2017-09-08] MEDS: PIPERACILLIN/TAZOBACTAM 3.375 GM in IV NORMAL SALINE 50ML 50 ML IV ×2 (01:31→06:11)
[2017-09-08] MEDS: MORPHINE SULFATE 2 MG/ML DISP.SYRIN. IV ×4 (04:40→08:18)
[2017-09-08 05:26] LABS: ADD MAN DIFF? NO
[2017-09-08 05:46] LABS: HEMATOCRIT 33.1 % (39.0-53.0); HEMOGLOBIN 10.9 g/dL (13.0-17.5); WHITE BLOOD COUNT 23.2 x10^3/uL (4.0-11.0)
[2017-09-08 05:47] LABS: BASO % 0 % (0-3); EOS % 0 % (0-3); LYMPH # 0.6 x10^3/uL (1.0-4.8); LYMPH % 3 % (24-48); MEAN CORPUSCULAR HEMOGLOBIN 29 pg (25-35); MEAN CORPUSCULAR HGB CONC 33 g/dL (31-37); MEAN CORPUSCULAR VOLUME 90 fL (79-100); MONO % 5 % (0-9); NEUT # 21.4 x10^3uL (1.8-7.7); NEUT % 92 % (31-73); PLATELET COUNT 655 x10^3/uL (140-400); RED CELL DISTRIBUTION WIDTH 20.1 % (11.5-14.5)
[2017-09-08 05:48] LABS: BASO # 0.1 x10^3/uL (0.0-0.2); MONO # 1.2 x10^3/uL (0.0-1.1)
[2017-09-08 06:21] LABS: ANION GAP 7 (6-14); BLOOD UREA NITROGEN 21 mg/dL (8-26); CALCIUM 9.6 mg/dL (8.5-10.1); CARBON DIOXIDE 34 mmol/L (21-32); CHLORIDE 96 mmol/L (98-107); CREATININE 0.9 mg/dL (0.7-1.3); GFR 84.7; GLUCOSE 202 mg/dL (70-99); SODIUM 137 mmol/L (136-145)
[2017-09-08] MEDS: ACETAMINOPHEN 650 MG/20.3 ML SOLUTION. PEG (07:51)
[2017-09-08] MEDS ORDERED: MORPHINE SULFATE 10 MG/ML VIAL. IV ×3 (08:00→08:15)
[2017-09-08] MEDS: ATROPINE 1% OPHTH SOLUTION 5ML BOTTLE. SL (08:18)
[2017-09-08] MEDS ORDERED: GLYCOPYRROLATE 1 MG/5 ML VIAL. IV (08:30)
[2017-09-08] MEDS ORDERED: SCOPOLAMINE 1.5MG PATCH. TD (08:30)
[2017-09-08] MEDS: MORPHINE SULFATE 4 MG/ML DISP.SYRIN. IV (08:34)
[2017-09-08] MEDS: GLYCOPYRROLATE 1 MG/5 ML VIAL. IM (08:35)
== END 2017-09-08 08:52 | DRG 177 ==
LOC: ER 04:18 → 6 SOUTH 05:42
DX: J69.0 Pneumonitis due to inhalation of food and vomit (principal); G93.41 Metabolic encephalopathy; G20 Parkinson's disease; G62.9 Polyneuropathy, unspecified; E11.40 Type 2 diabetes mellitus with diabetic neuropathy, unspecified; F03.90 Unspecified dementia, unspecified severity, without behavioral disturbance, psychotic disturbance, mood disturbance, and anxiety; E78.00 Pure hypercholesterolemia, unspecified; E78.5 Hyperlipidemia, unspecified; G47.33 Obstructive sleep apnea (adult) (pediatric); I10 Essential (primary) hypertension; J44.9 Chronic obstructive pulmonary disease, unspecified; R62.7 Adult failure to thrive; Z66 Do not resuscitate; Z82.49 Family history of ischemic heart disease and other diseases of the circulatory system; Z87.891 Personal history of nicotine dependence; Z96.659 Presence of unspecified artificial knee joint; F32.9 Major depressive disorder, single episode, unspecified; F41.9 Anxiety disorder, unspecified; M54.9 Dorsalgia, unspecified; Z88.8 Allergy status to other drugs, medicaments and biological substances; Z91.041 Radiographic dye allergy status; Z51.5 Encounter for palliative care
CPT/HCPCS: 36415; 71045; 80048; 80053; 83605; 83690; 83735; 83880; 84443; 84484; 85007; 85025; 85610; 85730; 87040; 87205; 87804; 87804-59; 93005; 96365; 99285; 99285-25; J2060; J2270; J2543; J3490